=== PATIENT | male | born 1975 | race Caucasian/White ===

== ENCOUNTER 2017-04-01 14:17 | Inpatient (IN) | payer MEDICAID, OTHER ==
[~2017-04-01] VITALS: Ht 175.3 cm; Wt 79.5 kg
[~2017-04-01 14:17] MED LIST: CLIN-73 PO; GLIP-95 PO; LANT3I SC; SITA50TA2 PO
[2017-04-01] MEDS ORDERED: SODIUM CHLORIDE 0.9% 1L BAG IV* STA (16:26)
[2017-04-01] MEDS ORDERED: PIPER-TAZO 3.375 GM IV (PMX) 100 ML IVPB ONE (16:30)
[2017-04-01] MEDS ORDERED: VANCOMYCIN 1 GM (PMX) 250 ML IVPB ONE (16:30)
[2017-04-01] MEDS ORDERED: IBUPROFEN 600 MG TAB PO ONE (16:30)
--- NOTE | 2017-04-01 16:56 | RADRPT ---
PROCEDURE: XR Chest. CLINICAL INDICATION: Sepsis . TECHNIQUE: Single frontal chest x-ray. COMPARISON: By FINDINGS: The lungs are clear of acute infiltrates, edema, effusions, or masses.. The cardiomediastinal silho uette is unremarkable. The osseous structures are intact. IMPRESSION: No acute cardiopulmonary disease. RPTAT: GG .Héctor Carrasco MD, MD Date Time Electronically viewed and signed by .Héctor Carrasco MD, on 04/01/2017 16:56 .L/
[2017-04-01 16:57] LABS: BASOPHILS % 0.3 % (0.0-2.0); EOSINOPHILS # 0.1 10^3/ul (0.0-0.5); EOSINOPHILS % 0.8 % (0.0-7.0); HEMATOCRIT 38.1 % (42.0-52.0); HEMOGLOBIN 13.5 g/dl (14.0-18.0); LYMPHOCYTES % 7.5 % (15.0-51.0); MEAN CORPUSCULAR HEMOGLOBIN 32.4 pg (29.0-33.0); MEAN CORPUSCULAR HGB CONC 35.4 g/dl (32.0-37.0); MEAN CORPUSCULAR VOLUME 91.4 fl (82.0-101.0); MONOCYTE # 1.4 10^3/ul (0.3-0.9); MONOCYTES % 10.2 % (0.0-11.0); NEUTROPHIL # 11.2 10^3/ul (1.6-7.5); NEUTROPHILS % 80.6 % (39.0-77.0); PLATELET COUNT 163 10^3/UL (140-415); RED BLOOD COUNT 4.17 10^6/ul (4.70-6.10); RED CELL DISTRIBUTION WIDTH 11.2 % (11.5-14.5); WHITE BLOOD COUNT 13.9 10^3/ul (4.8-10.8)
[2017-04-01 17:19] LABS: ALANINE AMINOTRANSFERASE 26 IU/L (13-69); ALBUMIN 3.8 g/dl (3.3-4.9); ALBUMIN/GLOBULIN RATIO 1.15; ALKALINE PHOSPHATASE 149 IU/L (42-121); ANION GAP 19 (8-16); ASPARTATE AMINO TRANSFERASE 10 IU/L (15-46); BILIRUBIN,INDIRECT 0.5 mg/dl (0-1.1); BILIRUBIN,TOTAL 0.5 mg/dl (0.2-1.3); BLOOD UREA NITROGEN 14 mg/dl (7-20); CALCIUM 9.2 mg/dl (8.4-10.2); CARBON DIOXIDE 26 mmol/L (21-31); CHLORIDE 96 mmol/L (97-110); CREATININE 1.29 mg/dl (0.61-1.24); POTASSIUM 4.7 mmol/L (3.5-5.1); SODIUM 136 mmol/L (135-144); TOTAL PROTEIN 7.1 g/dl (6.1-8.1)
[2017-04-01 17:24] LABS: GLUCOSE 509 mg/dl (70-220)
[2017-04-01 17:26] LABS: INR 0.96; PROTIME 12.8 Sec (12.2-14.2)
[2017-04-01 17:27] LABS: PARTIAL THROMBOPLASTIN TIME 29.1 Sec (25.0-35.0)
[2017-04-01 17:34] LABS: TROPONIN-I < 0.012 ng/ml (0.00-0.12)
--- NOTE | 2017-04-01 18:26 | RADRPT ---
PROCEDURE: XR Foot. CLINICAL INDICATION: Clinical concern is for a foreign body. TECHNIQUE: Three views of the right foot are available for review. COMPARISON: CR FOOT 10/29/2015 FINDINGS: There is no acute osseous or articular abnormality. No evidence for fracture. Bone mineral density is preserved. The articular surfaces are smooth without evidence of marginal erosions. Enthesopathi c changes seen at the plantar calcaneal margin. The soft tissues are intact without evidence of calc ifications. IMPRESSION: 1. No acute osseous abnormality or radiographic evidence for osteomyelitis. Please note that MRI is more sensitive in evaluating for early changes of osteomyelitis. 2. No radiopaque foreign body. RPTAT: [facility]U .Daniel Ribeiro MD, Date Time Electronically viewed and signed by .Daniel Ribeiro MD, MD on 04/01/2017 18:25 .d/
[2017-04-01] MEDS ORDERED: INSULIN LISPRO 100 UNIT/ML VIAL SC STA (18:39)
[2017-04-01] MEDS: SOD CHLORIDE 0.9% 1,000 ML IV SCH (18:59)
[2017-04-01] MEDS ORDERED: DOCUSATE SODIUM 100 MG CAP PO PRN (19:00)
[2017-04-01] MEDS ORDERED: VANCOMYCIN IV PER PHARMACY XX SCH (19:00)
[2017-04-01] MEDS ORDERED: NACL 0.9% 3 ML SYG IV SCH (19:00)
[2017-04-01] MEDS ORDERED: MAGNESIUM HYDROXIDE 30ML CUP PO PRN (19:00)
[2017-04-01] MEDS ORDERED: NA PHOSPHATE/BIPHOS 133 ML ENEMA PR PRN (19:00)
[2017-04-01] MEDS ORDERED: NITROGLYCERIN (SL) 0.4 MG TAB SL PRN (19:00)
[2017-04-01] MEDS ORDERED: ONDANSETRON 4 MG INJ IV PRN (19:00)
[2017-04-01] MEDS ORDERED: ALBUTEROL/IPRATROPIUM (NEB) 3 ML AMP HHN PRN (19:00)
[2017-04-01] MEDS ORDERED: LORAZEPAM 2 MG INJ IV PRN (19:00)
[2017-04-01] MEDS ORDERED: hydrALAzine 20 MG INJ IV PRN (19:00)
--- NOTE | 2017-04-01 19:01 | ERA ---
ER Documentation Chief Complaint Date/Time DATE: 04/01/17 TIME: 18:39 Chief Complaint diabetic foot HPI 42-year-old man complains of redness and pain to the dorsal aspect of the right foot creeping up the right leg 2 days. He states he had a similar episode just over a year ago. He is a diabetic and states his blood sugars have been running high. He has had tactile fevers, palpitations no chest pain or shortness of breath, no headache or blurry vision, no neck pain or stiffness, no recent antibiotic, no recent travel. 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 Medications Home Meds Reported Medications Sitagliptin* (Januvia*) 50 Mg Tablet, 50 MG PO BID, #30 TAB 10/29/15 Glipizide* (Glipizide*) 10 Mg Tablet, 10 MG PO BID, TAB 10/29/15 Discontinued Scripts Clindamycin Hcl* (Clindamycin Hcl*) 300 Mg Capsule, 300 MG PO Q6 for 10 Days, CAP Prov:LAURA NESBITT S. 10/31/15 Insulin Glargine* (Lantus*) 100 Unit/Ml Soln, 15 UNIT SC DAILY for 30 Days, 4 Refills Prov:LAURA NESBITT S. 10/31/15 Allergies Allergies: Coded Allergies: No Known Allergy (Verified , 04/01/17) PMhx/Soc Diabetes mellitus History of Surgery: No Anesthesia Reaction: No Hx Neurological Disorder: No Hx Respiratory Disorders: No Hx Cardiac Disorders: Yes (HTN) Hx Psychiatric Problems: No Hx Miscellaneous Medical Probl: Yes (DM, pancreatitis, hypercholesterolemia) Hx Alcohol Use: No Hx Substance Use: No Hx Tobacco Use: No (5-6 sticks a day) Smoking Status: Never smoker FmHx Family History: No diabetes Physical Exam Vitals Vital Signs Date Time Temp Pulse Resp B/P Pulse Ox O2 Delivery O2 Flow Rate FiO2 04/01/17 14:26 99.8 124 24 135/88 98 Physical Exam GENERAL: Well-developed, well-nourished, febrile HEENT: Moist mucous membranes, pink conjunctiva, no cervical spine tenderness or step-off deformities, no goiter, no jaundice or icterus, extraocular movements intact without pain. No submandibular induration, and no pharyngeal erythema NEURO: Alert and oriented 3, cranial nerves II through XII intact bilaterally, pupils equal round reactive to light, no focal deficits or facial asymmetry, sensation intact distally Strength 5/5 in upper and lower extremities bilaterally CARDIAC: Tachycardic and regular, no murmurs rubs or gallops LUNGS: Clear bilaterally no wheezing crackles or stridor ABDOMEN: Soft nontender, no guarding, no rigidity, no rebound, no psoas sign no obturator sign. Normoactive bowel sounds SKIN: Warm and dry to touch, positive skin erythema and induration to the dorsal aspect of the right foot creeping up the right leg consistent with cellulitis and lymphangitis., No ulcers or pustules noted. EXTREMITIES: No clubbing cyanosis or edema, calves are bilaterally symmetrical, no Homans sign, no popliteal cord sign. Distal pulses equal and bilateral PSYCH: Normal affect without agitation or irritability Result Diagram: 04/01/17 1640 04/01/17 1640 Results 24 hrs Laboratory Tests Test 04/01/17 16:40 White Blood Count 13.910^3/ul Red Blood Count 4.1710^6/ul Hemoglobin 13.5g/dl Hematocrit 38.1% Mean Corpuscular Volume 91.4fl Mean Corpuscular Hemoglobin 32.4pg Mean Corpuscular Hemoglobin Concent 35.4g/dl Red Cell Distribution Width 11.2% Platelet Count 40202^3/UL Mean Platelet Volume 11.0fl Neutrophils % 80.6% Lymphocytes % 7.5% Monocytes % 10.2% Eosinophils % 0.8% Basophils % 0.3% Nucleated Red Blood Cells % 0.0/100WBC Neutrophils # 11.210^3/ul Lymphocytes # 1.010^3/ul Monocytes # 1.410^3/ul Eosinophils # 0.110^3/ul Basophils # 0.010^3/ul Nucleated Red Blood Cells # 0.010^3/ul Prothrombin Time 12.8Sec Prothrombin Time Ratio 1.0 INR International Normalized Ratio 0.96 Activated Partial Thromboplast Time 29.1Sec Sodium Level 136mmol/L Potassium Level 4.7mmol/L Chloride Level 96mmol/L Carbon Dioxide Level 26mmol/L Anion Gap 19 Blood Urea Nitrogen 14mg/dl Creatinine 1.29mg/dl Glucose Level 509mg/dl Lactic Acid Level 2.5mmol/L Calcium Level 9.2mg/dl Total Bilirubin 0.5mg/dl Direct Bilirubin 0.00mg/dl Indirect Bilirubin 0.5mg/dl Aspartate Amino Transf (AST/SGOT) 10IU/L Alanine Aminotransferase (ALT/SGPT) 26IU/L Alkaline Phosphatase 149IU/L Troponin I < 0.012ng/ml Total Protein 7.1g/dl Albumin 3.8g/dl Globulin 3.30g/dl Albumin/Globulin Ratio 1.15 Lipase 79U/L Current Medications Medications (Trade) Dose Ordered Sig/Antoni Route PRN Reason Start Time Stop Time Status Last Admin Dose Admin Sodium Chloride 3000 ml 3,000 ml BOLUS OVER 2 HOURS STAT IV* 04/01/17 16:26 04/01/17 16:28 DC 04/01/17 16:43 Vancomycin HCl 250 ml @ 125 mls/hr ONCE ONCE IVPB 04/01/17 16:30 04/01/17 18:29 DC 04/01/17 16:30 Piperacillin Sod/ Tazobactam Sod (Zosyn 3.375gm/ 100 ml (Pmx)) 100 ml @ 200 mls/hr ONCE ONCE IVPB 04/01/17 16:30 04/01/17 16:59 DC 04/01/17 16:43 Ibuprofen (Motrin) 600 mg ONCE ONCE PO 04/01/17 16:30 04/01/17 16:31 DC 04/01/17 16:43 Procedures/MDM IV line was established patient was placed on court monitor rhythm strip revealed a sinus tachycardia at 120 bpm. Patient was febrile. Blood and urine cultures have been ordered results are pending I will follow-up. EKG performed, read by me revealed a sinus tachycardia 113 bpm, normal axis, right ventricular conduction delay with incarceration of 100 ms, no concerning ST elevations or depressions noted. LVH lead I. Chest X-ray 1V Interpreted by me: Soft Tissue: No acute abnormalities Bones: No acute abnormalities Mediastinum/Cardiac Silhouette/Lungs: No acute abnormalities X-ray right foot 3V Interpreted by me: Bones: No fracture Joints: No dislocation Foreign body: None I administered ibuprofen 600 mg p.o., 3 L normal saline intravenously, vancomycin 1 g IV and Zosyn 3.375 g IV. CBC reveals mild leukocytosis, electrolytes reveal a creatinine of 1.3, liver function tests normal, hyperglycemia 509, troponin negative, lactic acid elevated at 2.5. For acute hyperglycemia I administered lispro insulin 12 units subcutaneous injection 1. Patient's infectious symptoms have not stabilized and the patient is at risk of rapid decompensation. The patient will be admitted for careful hydration, antibiotic therapy, and infectious source control. Severe Sepsis Assessment: Infectious Source: Foot cellulitis End organ damage indicated by: No criteria for endorgan damage. Severe Sepsis Managment: Blood Cultures X 2 before broad spectrum antibiotics initiated within 3 hours of recognition. 30 ml/kg NS bolus Completed Initial Lactate: Elevated at 2.5. Repeat Lactate pending Critical Care: Time: 50 minutes, this was time separate from other billable procedures. Treatments/Evaluations: Emergent fluid management, while maintaining close respiratory support. Immediate broad spectrum antibiotic therapy. Simultaneous assessment for possible sources in order to direct therapy. Consideration for invasive and chemical support to prevent respiratory or cardiac collapse. Septic Shock Assessment (1 hour post 30 ml/kg fluid bolus): Hypotension (SBP < 90 or 40 mmHg drop, MAP < 65): No Lactic acid > 4.0 No Perfusion Reassessment for Septic Shock: Temp 99.9, pulse 100 bpm, respiratory rate 18 breaths per minute, blood pressure 120/80 Heart Exam: Regular rate rhythm Lung Exam: No crackles wheezing or stridor Capillary Refill: Less than 2 seconds Peripheral Pulses: Radially present Skin: [place] and dry Hypotensive Treatment (not required for isolated lactic acid elevation): Comfort Care: No Central LIne: Not indicated Vasopressor started: Not indicated I considered further perfusion assessment with CVP measurement, SCVO2, bedside ultrasound volume assessment, passive leg raise, trial of further fluid bolus. And preceded with IV antibiotics and IV fluids. Accepting Care Team: Current data and ongoing care discussed. Time: Time of admission Primary Provider: Hospitalist Consulting: Infectious disease Outstanding Data: none Departure Diagnosis: Primary Impression: Cellulitis Qualified Code: L03.115 - Cellulitis of right lower extremity Additional Impressions: Sepsis Qualified Code: A41.9 - Sepsis, due to unspecified organism Lymphangitis Diabetes mellitus Qualified Code: E11.65 - Type 2 diabetes mellitus with hyperglycemia, unspecified half-way insulin use status Acute hyperglycemia Condition: ANDREI Reyes MD Apr 01, 2017 18:53
[2017-04-01] MEDS: HYDROCODONE/APAP (5/325) TAB PO PRN (19:29)
[2017-04-01] MEDS: morphine 2 MG INJ IV PRN (19:29)
[2017-04-01] MEDS ORDERED: GLUCOSE GEL 15 GRAM TUBE PO PRN ×2 (19:30)
[2017-04-01] MEDS ORDERED: GLUCOSE GEL 15 GRAM TUBE BUCCAL PRN (19:30)
[2017-04-01] MEDS ORDERED: GLUCAGON 1 MG INJ IM PRN (19:30)
[2017-04-01] MEDS: NICOTINE (14 MG/24 HR) PATCH TRANSDERM SCH (19:30)
[2017-04-01] MEDS ORDERED: DEXTROSE 50% 50 ML SYRINGE IV PRN ×2 (19:30)
--- NOTE | 2017-04-01 20:27 | HP ---
DATE OF ADMISSION: 04/01/2017 CHIEF COMPLAINT: Right foot pain and redness. HISTORY OF PRESENT ILLNESS: A 42-year-old male with past medical history of prior right big toe cellulitis and ulcer, type 2 diabetes, high cholesterol, and smoking history, who presents with right foot redness and pain. He says he has been treating an ulcer on the sole of his right foot near his 5th digit for the last 2 days with hydrogen peroxide and it has been having some mild drainage, but he also noticed redness occurring in his right foot for the last 24 hours. Denies any trauma to the area. No chest pain or shortness of breath, fevers or chills, nausea, vomiting, upper lower GI bleeding, diarrhea or constipation, headaches, dizziness, or loss of consciousness. When he came into the ER today, he had an elevated white blood cell count of almost 14,000 and his lactic acid was elevated as well at 2.5 and he was given antibiotics in the emergency room. He also had signs of elevated blood sugar of 509. Patient was last here at our hospital in Oct, 2015. At that time, he was treated for right big toe 1st digit cellulitis and ulcer, and had uncontrolled diabetes at that time. PAST MEDICAL HISTORY: As stated above. ALLERGIES: NO KNOWN DRUG ALLERGIES. HOME MEDICATIONS: Presently include glipizide 10 mg b.i.d. and Januvia 50 mg b.i.d. PAST SURGICAL HISTORY: None. SOCIAL HISTORY: He smokes half a pack of cigarettes a day for the last 10 years. FAMILY HISTORY: His mother and father both had diabetes. PHYSICAL EXAMINATION: VITAL SIGNS: Today vital signs, T-max 99, 99.8, pulse is 124, respirations 24, blood pressure 135/88, sating at 98 percent room air. GENERAL: Patient is lying in bed, answers appropriately, no acute distress. HEENT: Pupils equal, round, react to light. Extraocular muscles intact. NECK: Supple. No thyromegaly. LUNGS: Clear to auscultation bilaterally. CARDIOVASCULAR: S1, S2 heard. No rubs or gallops. ABDOMEN: Soft, nontender, nondistended. Normal bowel sounds. No rebound or guarding. MUSCULOSKELETAL: His right foot, both the dorsal and plantar aspects, show warmth and redness and slight swelling on the plantar aspect of his right foot around the 5th digit. There is an ulcer noted with minimal drainage coming out. No blood. Otherwise, no lower extremity edema bilaterally. NEUROLOGIC: No focal deficits. LABORATORY: Again, WBC 13.9, hemoglobin 13.5, hematocrit 38.1, platelets 163. Sodium 136, potassium 4.7, chloride 96, CO2 26, BUN 14, creatinine 1.29, glucose 509, lactic acid 2.5. LFTs are essentially normal, although, alk phos is 149, lipase is normal. He had a foot x-ray that shows no acute osseous abnormalities or radiographic evidence for osteomyelitis. No signs of any fractures. He had a chest x-ray today that shows no acute cardiopulmonary disease. ASSESSMENT AND PLAN: A 42-year-old male coming in with right foot redness and swelling with signs of osteomyelitis and diabetic foot ulcer likely. 1. Right foot cellulitis. Admit patient to medical/surgical floor. Will get podiatry and infectious disease consult, put him on broad-spectrum antibiotics, IV fluids as well. Check TSH, A1c, and lipid panel. Will get an MRI of the right foot to rule out osteomyelitis as well given that there is an ulcer there. 2. Right foot diabetic ulcer. Again, see number 1. Again, will continue broad-spectrum antibiotics as in number 1 and get podiatry consult and infectious disease consult. Patient may benefit from incision and drainage. Will get MRI of the right foot. 3. Lactic acidosis. Again, likely secondary to number 1. Again, continue broad-spectrum antibiotics, IV fluids, trend lactic acid, Tylenol p.r.n. pain and fevers. 4. History of type 2 diabetes. Appears to be under control. His last A1c back in Oct, 2015 was 10.0. Sugar today is 509. Will check A1c, put him on sliding scale insulin, and also Lantus. 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 5. Smoking history. Counseled on cessation. Will order nicotine patch as well. 6. High cholesterol. Again, check lipid panel and consider starting statin. Consider PT consult as well. Dictated By: Senthil Pa MD /gomez/nga /Document#: [id number]
[2017-04-01] MEDS ORDERED: VANCOMYCIN 1.25 GM in SOD CHLORIDE 0.9% 250 ML IVPB SCH (21:00)
[2017-04-01 21:51] LABS: INR 0.92; PROTIME 12.4 Sec (12.2-14.2)
[2017-04-01 21:52] LABS: PARTIAL THROMBOPLASTIN TIME 27.1 Sec (25.0-35.0)
[2017-04-01 22:05] VITALS: TEMP 97.9
--- NOTE | 2017-04-01 23:57 | RADRPT ---
PROCEDURE: MR Foot. CLINICAL INDICATION: Open wound with infection in the right forefoot, with concern for osteomyeliti s. TECHNIQUE: Noncontrast MRI examination was obtained over the forefoot from the tarsal metatarsal marilee ints to the toes, with axial, sagittal and coronal images. T1-weighted and STIR images were obtained . COMPARISON: Right foot plain film series dated 04/01/2017. FINDINGS: There is a soft tissue defect at the plantar aspect of the lateral right forefoot. There is no evide nt abnormal T1-weighted or fluid-sensitive STIR sequence signal within the osseous structures of the right forefoot to suggest osteomyelitis. The soft tissues otherwise unremarkable. There may be a remote surgical changes of a chevron osteotomy in the mid diaphysis of the first prox imal phalanx. This is not clear. There is no evident acute fracture, dislocation or marrow replacement process. IMPRESSION: No MRI evidence of osteomyelitis. RPTAT: [facility] Physician Beka Date Time Electronically viewed and signed by Physician Beka on 04/01/2017 23:57 RS/
[2017-04-02 00:30] VITALS: Ht 175.3 cm; Wt 79.5 kg
[2017-04-02] MEDS: INSULIN ASPART [NOVOLOG] 3 ML PEN SC SCH ×8 (01:00→20:55)
[2017-04-02] MEDS: HEPARIN 5,000 UNIT/0.5 ML VIAL SC SCH ×3 (01:21→20:56)
[2017-04-02] MEDS: ACCU-CHEK XX SCH (02:00)
[2017-04-02] MEDS: PIPER-TAZO 3.375 GM IV (PMX) 100 ML IVPB SCH ×5 (03:51→23:41)
[2017-04-02] MEDS: SOD CHLORIDE 0.9% 1,000 ML IV SCH ×2 (03:52→18:04)
[2017-04-02] MEDS: INSULIN GLARGINE [LANtus] 3 ML PEN SC SCH (07:31)
[2017-04-02 07:40] LABS: CHOL/HDL RATIO 3.2 RATIO
[2017-04-02 07:44] VITALS: BP 138/85; PULSE 101; RESP 17
[2017-04-02 08:12] LABS: THYROID STIMULATING HORMONE 0.82 MIU/L (0.465-4.680)
[2017-04-02] MEDS: morphine 2 MG INJ IV PRN ×2 (08:40→14:54)
[2017-04-02] MEDS: NICOTINE (14 MG/24 HR) PATCH TRANSDERM SCH (09:00)
[2017-04-02 09:46] LABS: BASOPHILS % 0.3 % (0.0-2.0); EOSINOPHILS # 0.2 10^3/ul (0.0-0.5); EOSINOPHILS % 1.6 % (0.0-7.0); HEMATOCRIT 33.2 % (42.0-52.0); HEMOGLOBIN 11.2 g/dl (14.0-18.0); LYMPHOCYTES # 1.2 10^3/ul (0.8-2.9); LYMPHOCYTES % 9.8 % (15.0-51.0); MEAN CORPUSCULAR HEMOGLOBIN 30.9 pg (29.0-33.0); MEAN CORPUSCULAR HGB CONC 33.7 g/dl (32.0-37.0); MEAN CORPUSCULAR VOLUME 91.7 fl (82.0-101.0); MEAN PLATELET VOLUME 10.9 fl (7.4-10.4); MONOCYTE # 1.1 10^3/ul (0.3-0.9); MONOCYTES % 9.2 % (0.0-11.0); NEUTROPHIL # 9.2 10^3/ul (1.6-7.5); NEUTROPHILS % 78.3 % (39.0-77.0); PLATELET COUNT 134 10^3/UL (140-415); RED BLOOD COUNT 3.62 10^6/ul (4.70-6.10); RED CELL DISTRIBUTION WIDTH 11.3 % (11.5-14.5); WHITE BLOOD COUNT 11.7 10^3/ul (4.8-10.8)
[2017-04-02 10:14] LABS: CALCIUM 8.2 mg/dl (8.4-10.2); CREATININE 0.6 mg/dl (0.61-1.24); MAGNESIUM 1.3 mg/dl (1.7-2.5); PHOSPHORUS 3.7 mg/dl (2.5-4.9); POTASSIUM 4.6 mmol/L (3.5-5.1)
--- NOTE | 2017-04-02 11:35 | CONS ---
DATE OF ADMISSION: 04/01/2017 DATE OF CONSULTATION: 04/02/2017 INFECTIOUS DISEASE CONSULTATION REASON FOR CONSULTATION: Antibiotic management. HISTORY OF PRESENT ILLNESS: Rey Mitchell is a 42-year-old male with numerous problems who comes in with right foot pain and redness. His past problems include: 1. Adult-onset diabetes mellitus. 2. Hypercholesterolemia. 3. History of smoking. 4. Cellulitis of the right big toe. Acutely, the patient comes in with right foot redness and pain. He has an ulcer on his sole of the right foot near his 5th digit for the last 2 days with mild drainage despite use of hydrogen peroxid e. There is redness that is occurring in his right foot for the last 24 hours. He denies trauma to the area. No chest pain or shortness of breath. No fever or chills. He had an elevated white cou nt of 13.9, H and H of 13.5 and 38.1, platelet count 163,000. BUN and creatinine 14/1.29. LFTs are normal. Alkaline phosphatase is 149. X-ray shows no acute osseous abnormalities or evidence of os teomyelitis. Chest x-ray showed no acute cardiopulmonary disease. The patient was hospitalized las t 10/2015, was treated for right big toe 1st digit cellulitis and ulcer and has had uncontrolled karen betes. He had it at that time and probably currently. PAST MEDICAL HISTORY: Operations as outlined. FAMILY HISTORY: Noncontributory. His parents both had diabetes. SOCIAL HISTORY: He smokes half pack of cigarettes a day for the last 10 years. ALLERGIES: NONE TO PENICILLIN, SULFA OR FOODS. MEDICATIONS: Per chart. REVIEW OF SYSTEMS: Noncontributory. PHYSICAL EXAMINATION: GENERAL: The patient is a well-developed, well-nourished male, alert, responsive, in no acute distr ess. VITAL SIGNS: Stable. He is afebrile. SKIN: Without generalized rash. HEENT: Within normal limits. NECK: Supple. LYMPH NODES: None palpable. CHEST: Decreased breath sounds at the bases. HEART: Without murmur or gallop. ABDOMEN: Soft, nontender, without organosplenomegaly or masses. EXTREMITIES: Right foot both dorsal and plantar aspects are warm and red, slight swelling on the pl ida aspect of his right foot around the 5th digit. There is an ulcer noted with minimal drainage coming out, no blood, otherwise no lower extremity edema bilaterally. IMPRESSION AND PLAN: The patient was started on vancomycin and Zosyn. Podiatry was called and an M RI scan was ordered of the right foot. I concur with current therapy. I will dictate my findings t o the hospitalist and to thank Dr. Martinez. Dictated By: DC DUONG MD, JD/CRUZ Conf#: [id number] DID#: [id number]
--- NOTE | 2017-04-02 12:36 | PN ---
Date/Time of Note Date/Time of Note DATE: 04/02/17 TIME: 12:35 Assessment/Plan VTE Prophylaxis VTE Prophylaxis Intervention: heparin Lines/Catheters IV [facility] Type (from [facility] Peripheral IV Urinary Cath still in place: No Assessment/Plan Chief Complaint/Hosp Course ASSESSMENT AND PLAN: A 42-year-old male coming in with right foot redness and swelling with signs of osteomyelitis and diabetic foot ulcer likely. 1. Right foot cellulitis -still prominent, slowly improving. f/u podiatry and infectious disease consult rec's, - continue broad-spectrum antibiotics, IV fluids as well. - f/uTSH, A1c, and lipid panel. - f wound culture results 2. Right foot diabetic ulcer. Again, see number 1. Again, will continue broad-spectrum antibiotics as in number 1 and get podiatry consult and infectious disease consult. Patient may benefit from incision and drainage 3. Lactic acidosis - resolved now. again, likely secondary to number 1. Again, continue broad-spectrum antibiotics, IV fluids, trend lactic acid, Tylenol p.r.n. pain and fevers. 4. History of type 2 diabetes.A1c = 10.6 - continue sliding scale insulin, and also Lantus. Consider nurse educator consult. 5. Smoking history. Counseled on cessation, nicotine patch as well. 6. High cholesterol - f/u check lipid panel and consider starting statin. Consider PT consult as well. Problems: Subjective 24 Hr Interval Summary Free Text/Dictation Patient had no acute events overnight. MRI of the foot was performed. Seen by infectious disease team yesterday. Exam/Review of Systems Vital Signs Vitals Vital Signs Date Time Temp Pulse Resp B/P Pulse Ox O2 Delivery O2 Flow Rate FiO2 04/02/17 07:44 99.4 101 17 138/85 97 Room Air Intake and Output 04/01/17 04/01/17 04/02/17 14:59 22:59 06:59 Intake Total 350 ml Balance 350 ml Exam GENERAL: Patient is lying in bed, answers appropriately, no acute distress. HEENT: Pupils equal, round, react to light. Extraocular muscles intact. NECK: Supple. No thyromegaly. LUNGS: Clear to auscultation bilaterally. CARDIOVASCULAR: S1, S2 heard. No rubs or gallops. ABDOMEN: Soft, nontender, nondistended. Normal bowel sounds. No rebound or guarding. MUSCULOSKELETAL: His right foot, both the dorsal and plantar aspects, show warmth and redness and slight swelling on the plantar aspect of his right foot around the 5th digit. There is an ulcer noted with minimal drainage coming out. No blood. Otherwise, no lower extremity edema bilaterally. NEUROLOGIC: No focal deficits. Results Result Diagram: 04/02/17 0815 04/02/17 0814 Results 24 hrs Laboratory Tests Test 04/01/17 16:40 04/01/17 20:25 04/01/17 21:12 04/01/17 23:49 White Blood Count 13.9 #H Red Blood Count 4.17 L Hemoglobin 13.5 L Hematocrit 38.1 L Mean Corpuscular Volume 91.4 Mean Corpuscular Hemoglobin 32.4 Mean Corpuscular Hemoglobin Concent 35.4 Red Cell Distribution Width 11.2 L Platelet Count 163 Mean Platelet Volume 11.0 H Neutrophils % 80.6 H Lymphocytes % 7.5 L Monocytes % 10.2 Eosinophils % 0.8 Basophils % 0.3 Nucleated Red Blood Cells % 0.0 Neutrophils # 11.2 H Lymphocytes # 1.0 Monocytes # 1.4 H Eosinophils # 0.1 Basophils # 0.0 Nucleated Red Blood Cells # 0.0 Prothrombin Time 12.8 12.4 Prothrombin Time Ratio 1.0 1.0 INR International Normalized Ratio 0.96 0.92 Activated Partial Thromboplast Time 29.1 27.1 Sodium Level 136 Potassium Level 4.7 Chloride Level 96 L Carbon Dioxide Level 26 Anion Gap 19 H Blood Urea Nitrogen 14 Creatinine 1.29 H Glucose Level 509 *H Lactic Acid Level 2.5 *H 2.4 *H Calcium Level 9.2 Total Bilirubin 0.5 Direct Bilirubin 0.00 Indirect Bilirubin 0.5 Aspartate Amino Transf (AST/SGOT) 10 L Alanine Aminotransferase (ALT/SGPT) 26 Alkaline Phosphatase 149 H Troponin I < 0.012 Total Protein 7.1 Albumin 3.8 Globulin 3.30 H Albumin/Globulin Ratio 1.15 Lipase 79 Bedside Glucose 308 H 267 H Erythrocyte Sedimentation Rate 105 H C-Reactive Protein 24.2 H Free Thyroxine 1.49 Test 04/01/17 23:56 04/02/17 01:14 04/02/17 01:15 04/02/17 05:19 Lactic Acid Level 1.4 Bedside Glucose 340 H 331 H 256 H Test 04/02/17 06:10 04/02/17 07:24 04/02/17 08:14 04/02/17 08:15 Hemoglobin A1c 10.6 H Triglycerides Level 125 Cholesterol Level 72 L LDL Cholesterol, Calculated 25 HDL Cholesterol 22 L Cholesterol/HDL Ratio 3.2 Thyroid Stimulating Hormone (TSH) 0.820 Bedside Glucose 219 Sodium Level 136 Potassium Level 4.6 Chloride Level 102 Carbon Dioxide Level 25 Anion Gap 14 Blood Urea Nitrogen 14 Creatinine 0.60 L Glucose Level 208 # Calcium Level 8.2 L Phosphorus Level 3.7 Magnesium Level 1.3 L White Blood Count 11.7 H Red Blood Count 3.62 L Hemoglobin 11.2 L Hematocrit 33.2 L Mean Corpuscular Volume 91.7 Mean Corpuscular Hemoglobin 30.9 Mean Corpuscular Hemoglobin Concent 33.7 Red Cell Distribution Width 11.3 L Platelet Count 134 L Mean Platelet Volume 10.9 H Neutrophils % 78.3 H Lymphocytes % 9.8 L Monocytes % 9.2 Eosinophils % 1.6 Basophils % 0.3 Nucleated Red Blood Cells % 0.0 Neutrophils # 9.2 H Lymphocytes # 1.2 Monocytes # 1.1 H Eosinophils # 0.2 Basophils # 0.0 Nucleated Red Blood Cells # 0.0 Lactic Acid Level 1.1 Test 04/02/17 11:53 Bedside Glucose 238 H Medications Medications Current Medications Ondansetron HCl (Zofran Inj) 4 mg Q6H PRN IV NAUSEA AND/OR VOMITING; Start 06/06 at 19:00 Acetaminophen (Tylenol Tab) 650 mg Q6H PRN PO PAIN LEVEL 1-3 OR FEVER; Start 04/01/17 at 19:00 Acetaminophen/ Hydrocodone Bitart ([place] (5/325)) 1 tab Q6H PRN PO MODERATE PAIN LEVEL 4-6 Last administered on 04/01/17 19:29; Admin Dose 1 TAB; Start 04/01/17 at 19:00 Morphine Sulfate (morphine) 2 mg Q4H PRN IV SEVERE PAIN LEVEL 7-10 Last administered on 04/02/17 08:40; Admin Dose 2 MG; Start 04/01/17 at 19:00 Docusate Sodium (Colace) 100 mg Q12H PRN PO CONSTIPATION; Start 04/01/17 at 19 :00 Magnesium Hydroxide (Milk Of Mag) 30 ml DAILY PRN PO CONSTIPATION; Start 04/01 at 19:00 Sodium Biphosphate/ Sodium Phosphate (Fleet Enema) 133 ml DAILY PRN IN CONSTIPATION; Start 04/01/17 at 19:00 Heparin Sodium (Porcine) (Heparin (5000 Units/0.5 ml)) 5,000 unit Q12 SC Last administered on 04/02/17 08:44; Admin Dose 5,000 UNIT; Start 04/01/17 at 21: 00 Lorazepam 0.5 mg 0.5 mg Q6H PRN IV ANXIETY; Start 04/01/17 at 19:00 Sodium Chloride 1,000 ml @ 100 mls/hr Q10H IV Last administered on 04/02/17 03:52; Admin Dose 100 MLS/HR; Start 04/01/17 at 18:59 Piperacillin Sod/ Tazobactam Sod (Zosyn 3.375gm/ 100 ml (Pmx)) 100 ml @ 200 mls /hr Q6 IVPB Last administered on 04/02/17 11:48; Admin Dose 200 MLS/HR; Start 04/02/17 at 00:00 Vancomycin HCl (Vanco Iv Per Pharmacy) VANCOMYCIN PER PHARMACY NOTE XX ; Start 04/01/17 at 19:00 Hydralazine HCl (Apresoline) 10 mg Q6H PRN IV ELEVATED BLOOD PRESSURE; Start 04/01/17 at 19:00 Clonidine (Catapres) 0.1 mg Q6H PRN PO ELEVATED BLOOD PRESSURE; Start at 19:00 Nitroglycerin (Nitroglycerin (Sl Tab) 0.4 Mg) 1 tab Q5M PRN SL ANGINA; Start 04/01/17 at 19:00 Diagnostic Test (Pha) (Accu-Chek) 1 ea 02 XX ; Start 04/02/17 at 02:00 Insulin Glargine (Lantus) 20 unit DAILY@08 SC Last administered on 04/02/17 07:31; Admin Dose 20 UNIT; Start 04/02/17 at 08:00 Miscellaneous Information 1 ea NOTE XX ; Start 04/01/17 at 19:30 Glucose (Glutose) 15 gm Q15M PRN PO DECREASED GLUCOSE; Start 04/01/17 at 19:30 Glucose (Glutose) 22.5 gm Q15M PRN PO DECREASED GLUCOSE; Start 04/01/17 at 19: 30 Dextrose (D50w Syringe) 25 ml Q15M PRN IV DECREASED GLUCOSE; Start 04/01/17 at 19:30 Dextrose (D50w Syringe) 50 ml Q15M PRN IV DECREASED GLUCOSE; Start 04/01/17 at 19:30 Glucagon (Glucagen) 1 mg Q15M PRN IM DECREASED GLUCOSE; Start 04/01/17 at 19: 30 Glucose (Glutose) 15 gm Q15M PRN BUCCAL DECREASED GLUCOSE; Start 04/01/17 at 19:30 Nicotine 1 patch 1 patch DAILY TRANSDERM ; Start 04/01/17 at 19:30 Vancomycin HCl/ Sodium Chloride (Vancocin/NS) 250 ml @ 83.333 mls/ hr Q12H IVPB ; Start 04/02/17 at 13:00 Miscellaneous Information VANCO TROUGH @ 1,200 ON ... ONCE ONCE XX ; Start at 12:00; Stop 04/03/17 at 12:01 Magnesium Sulfate/ Sodium Chloride (Magnesium Sulfate/NS) 106 ml @ 35.333 mls/ hr ONCE ONCE IVPB ; Start 04/02/17 at 13:00; Stop 04/02/17 at 15:59; Status UNV LAURA NESBITT Apr 02, 2017 12:36 LAURA NESBITT Apr 02, 2017 12:36
[2017-04-02] MEDS: VANCOMYCIN 1.25 GM in SOD CHLORIDE 0.9% 250 ML IVPB SCH (12:44)
[2017-04-02 14:00] VITALS: BP 128/83; PULSE 95; RESP 18
[2017-04-02] MEDS ORDERED: MAGNESIUM SULFATE 3 GM in SOD CHLORIDE 0.9% 100 ML IVPB ONE (14:00)
--- NOTE | 2017-04-02 19:03 | CONS ---
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 Continue IVAbx for now; non weight bearing and dry dressing with Betadine to plantar foot. Will follow. Consultation Date/Type/Reason Admit Date/Time Apr 01, 2017 at 17:32 Date of Consultation: Apr 02, 2017 Type of Consultation: Foot and ankle surgery Hx of Present Illness Thank you very much for involving me in the care of this patient. As you know this is a 42-year-old male with multiple medical problems including diabetes mellitus type 2, hypercholesterolemia, hypertension who presented to the emergency room with right foot redness swelling and pain. Patient reports that his been he has been treated for this had this problem in the past but mainly on the right big toe which cleared up. He says he has been taking care of his right foot using hydrogen peroxide but has noticed worsening of the condition. Patient denies any trauma to the right foot. He reports that the wound started as a blister on the ball of the right foot. Denies fever chills nausea and vomiting. Constitutional: improved, no complaints Eyes: no complaints ENT: no complaints Respiratory: no complaints Cardiovascular: no complaints Gastrointestinal: no complaints Past Medical History As per history of present illness. Past Surgical History As per history of present illness. Social History As per history of present illness. Smoking Status: Current every day smoker Exam/Review of Systems Vital Signs Vitals Vital Signs Date Time Temp Pulse Resp B/P Pulse Ox O2 Delivery O2 Flow Rate FiO2 04/02/17 14:00 98.7 95 18 128/83 94 Room Air Intake and Output 04/01/17 04/01/17 04/02/17 15:00 23:00 07:00 Intake Total 350 ml Balance 350 ml Exam GENERAL: Patient is in no acute distress; laying supine in bed; dressing removed from the right foot VASC: pedal pulses are palpable; capillary filling time is delayed bilateral feet; temperature gradient decreased right lower extremity and normal lower extremity; there is edema of the right foot NEURO: Protective sensation is decreased to sharp, dull, vibratory and temp stimuli; DTR normal bilateral lower extremity DERM: (+) erythema and open wound; maceration plantar sulcus of right foot; there is purulent drainage noted; erythema extends to the dorsal of the foot, anterior ankle and there is (+) streaking to the midleg ORTHO: tender to palpation right foot; contracted toes noted on both feet IMAGING: reviewed LABS: reviewed Results Result Diagram: 04/02/17 0815 04/02/1714 Results 24 hrs Laboratory Tests Test 04/01/17 20:25 04/01/17 21:12 04/01/17 23:49 04/01/17 23:56 Bedside Glucose 308 H 267 H Erythrocyte Sedimentation Rate 105 H Prothrombin Time 12.4 Prothrombin Time Ratio 1.0 INR International Normalized Ratio 0.92 Activated Partial Thromboplast Time 27.1 Lactic Acid Level 2.4 *H 1.4 C-Reactive Protein 24.2 H Free Thyroxine 1.49 Test 04/02/17 01:14 04/02/17 01:15 04/02/17 05:19 04/02/17 06:10 Bedside Glucose 340 H 331 H 256 H Hemoglobin A1c 10.6 H Triglycerides Level 125 Cholesterol Level 72 L LDL Cholesterol, Calculated 25 HDL Cholesterol 22 L Cholesterol/HDL Ratio 3.2 Thyroid Stimulating Hormone (TSH) 0.820 Test 04/02/17 07:24 04/02/17 08:14 04/02/17 08:15 04/02/17 11:53 Bedside Glucose 219 238 H Sodium Level 136 Potassium Level 4.6 Chloride Level 102 Carbon Dioxide Level 25 Anion Gap 14 Blood Urea Nitrogen 14 Creatinine 0.60 L Glucose Level 208 # Calcium Level 8.2 L Phosphorus Level 3.7 Magnesium Level 1.3 L White Blood Count 11.7 H Red Blood Count 3.62 L Hemoglobin 11.2 L Hematocrit 33.2 L Mean Corpuscular Volume 91.7 Mean Corpuscular Hemoglobin 30.9 Mean Corpuscular Hemoglobin Concent 33.7 Red Cell Distribution Width 11.3 L Platelet Count 134 L Mean Platelet Volume 10.9 H Neutrophils % 78.3 H Lymphocytes % 9.8 L Monocytes % 9.2 Eosinophils % 1.6 Basophils % 0.3 Nucleated Red Blood Cells % 0.0 Neutrophils # 9.2 H Lymphocytes # 1.2 Monocytes # 1.1 H Eosinophils # 0.2 Basophils # 0.0 Nucleated Red Blood Cells # 0.0 Lactic Acid Level 1.1 Test 04/02/17 15:50 04/02/17 17:10 Lactic Acid Level 0.9 Bedside Glucose 224 H Medications Medications Current Medications Ondansetron HCl (Zofran Inj) 4 mg Q6H PRN IV NAUSEA AND/OR VOMITING; Start 06/06 at 19:00 Acetaminophen (Tylenol Tab) 650 mg Q6H PRN PO PAIN LEVEL 1-3 OR FEVER; Start 04/01/17 at 19:00 Acetaminophen/ Hydrocodone Bitart ([place] (5/325)) 1 tab Q6H PRN PO MODERATE PAIN LEVEL 4-6 Last administered on 04/01/17 19:29; Admin Dose 1 TAB; Start 04/01/17 at 19:00 Morphine Sulfate (morphine) 2 mg Q4H PRN IV SEVERE PAIN LEVEL 7-10 Last administered on 04/02/17 14:54; Admin Dose 2 MG; Start 04/01/17 at 19:00 Docusate Sodium (Colace) 100 mg Q12H PRN PO CONSTIPATION; Start 04/01/17 at 19 :00 Magnesium Hydroxide (Milk Of Mag) 30 ml DAILY PRN PO CONSTIPATION; Start 04/01 at 19:00 Sodium Biphosphate/ Sodium Phosphate (Fleet Enema) 133 ml DAILY PRN [place] CONSTIPATION; Start 04/01/17 at 19:00 Heparin Sodium (Porcine) (Heparin (5000 Units/0.5 ml)) 5,000 unit Q12 SC Last administered on 04/02/17 08:44; Admin Dose 5,000 UNIT; Start 04/01/17 at 21: 00 Lorazepam 0.5 mg 0.5 mg Q6H PRN IV ANXIETY; Start 04/01/17 at 19:00 Sodium Chloride 1,000 ml @ 100 mls/hr Q10H IV Last administered on 04/02/17 18:04; Admin Dose 100 MLS/HR; Start 04/01/17 at 18:59 Piperacillin Sod/ Tazobactam Sod (Zosyn 3.375gm/ 100 ml (Pmx)) 100 ml @ 200 mls /hr Q6 IVPB Last administered on 04/02/17 17:14; Admin Dose 200 MLS/HR; Start 04/02/17 at 00:00 Vancomycin HCl (Vanco Iv Per Pharmacy) VANCOMYCIN PER PHARMACY NOTE XX ; Start 04/01/17 at 19:00 Hydralazine HCl (Apresoline) 10 mg Q6H PRN IV ELEVATED BLOOD PRESSURE; Start 04/01/17 at 19:00 Clonidine (Catapres) 0.1 mg Q6H PRN PO ELEVATED BLOOD PRESSURE; Start at 19:00 Nitroglycerin (Nitroglycerin (Sl Tab) 0.4 Mg) 1 tab Q5M PRN SL ANGINA; Start 04/01/17 at 19:00 Diagnostic Test (Pha) (Accu-Chek) 1 ea 02 XX ; Start 04/02/17 at 02:00 Insulin Glargine (Lantus) 20 unit DAILY@08 SC Last administered on 04/02/17 07:31; Admin Dose 20 UNIT; Start 04/02/17 at 08:00 Miscellaneous Information 1 ea NOTE XX ; Start 04/01/17 at 19:30 Glucose (Glutose) 15 gm Q15M PRN PO DECREASED GLUCOSE; Start 04/01/17 at 19:30 Glucose (Glutose) 22.5 gm Q15M PRN PO DECREASED GLUCOSE; Start 04/01/17 at 19: 30 Dextrose (D50w Syringe) 25 ml Q15M PRN IV DECREASED GLUCOSE; Start 04/01/17 at 19:30 Dextrose (D50w Syringe) 50 ml Q15M PRN IV DECREASED GLUCOSE; Start 04/01/17 at 19:30 Glucagon (Glucagen) 1 mg Q15M PRN IM DECREASED GLUCOSE; Start 04/01/17 at 19: 30 Glucose (Glutose) 15 gm Q15M PRN BUCCAL DECREASED GLUCOSE; Start 04/01/17 at 19:30 Nicotine 1 patch 1 patch DAILY TRANSDERM ; Start 04/01/17 at 19:30 Vancomycin HCl/ Sodium Chloride (Vancocin/NS) 250 ml @ 83.333 mls/ hr Q12H IVPB Last administered on 04/02/17 12:44; Admin Dose 83.333 MLS/HR; Start at 13:00 Miscellaneous Information (*Rx Drug Level Order Reminder*) VANCO TROUGH @ 1, 200 ON ... ONCE ONCE XX ; Start 04/03/17 at 12:00; Stop 04/03/17 at 12:01 ALEXANDRA VASQUEZ DPM Apr 02, 2017 19:03
[2017-04-02 23:26] VITALS: BP 144/83; RESP 20
[2017-04-02] MEDS: ACETAMINOPHEN 325 MG TAB PO PRN (23:41)
[2017-04-03] VITALS (17 sets, daily range): BP systolic 115–137; BP diastolic 68–87; PULSE 84–94; RESP 14–20
[2017-04-03] MEDS: SOD CHLORIDE 0.9% 1,000 ML IV SCH ×3 (00:59→21:12)
[2017-04-03] MEDS: VANCOMYCIN 1.25 GM in SOD CHLORIDE 0.9% 250 ML IVPB SCH ×3 (00:59→21:12)
[2017-04-03] MEDS: ACCU-CHEK XX SCH ×2 (01:40→01:41)
[2017-04-03] MEDS ORDERED: ACCU-CHEK XX SCH (02:00)
[2017-04-03] MEDS: PIPER-TAZO 3.375 GM IV (PMX) 100 ML IVPB SCH ×3 (05:21→17:50)
[2017-04-03 06:29] LABS: BASOPHIL # 0.1 10^3/ul (0.0-0.1); BASOPHILS % 0.5 % (0.0-2.0); EOSINOPHILS # 0.2 10^3/ul (0.0-0.5); EOSINOPHILS % 1.8 % (0.0-7.0); HEMATOCRIT 31.9 % (42.0-52.0); HEMOGLOBIN 11.2 g/dl (14.0-18.0); LYMPHOCYTES # 1.4 10^3/ul (0.8-2.9); LYMPHOCYTES % 14.2 % (15.0-51.0); MEAN CORPUSCULAR HEMOGLOBIN 32.1 pg (29.0-33.0); MEAN CORPUSCULAR HGB CONC 35.1 g/dl (32.0-37.0); MEAN CORPUSCULAR VOLUME 91.4 fl (82.0-101.0); MEAN PLATELET VOLUME 10.9 fl (7.4-10.4); MONOCYTE # 1.1 10^3/ul (0.3-0.9); NEUTROPHIL # 7.3 10^3/ul (1.6-7.5); NEUTROPHILS % 71.7 % (39.0-77.0); PLATELET COUNT 132 10^3/UL (140-415); RED BLOOD COUNT 3.49 10^6/ul (4.70-6.10); RED CELL DISTRIBUTION WIDTH 11.4 % (11.5-14.5); WHITE BLOOD COUNT 10.2 10^3/ul (4.8-10.8)
[2017-04-03] MEDS ORDERED: PROPOFOL 200 MG INJ ONE (07:00)
[2017-04-03 07:11] LABS: CALCIUM 8.1 mg/dl (8.4-10.2); CREATININE 0.62 mg/dl (0.61-1.24); POTASSIUM 3.9 mmol/L (3.5-5.1)
[2017-04-03] MEDS: morphine 2 MG INJ IV PRN ×2 (08:03→18:42)
[2017-04-03] MEDS: INSULIN GLARGINE [LANtus] 3 ML PEN SC SCH (08:14)
[2017-04-03] MEDS: INSULIN ASPART [NOVOLOG] 3 ML PEN SC SCH ×7 (08:15→21:00)
[2017-04-03] MEDS: NICOTINE (14 MG/24 HR) PATCH TRANSDERM SCH (09:00)
[2017-04-03] MEDS: HEPARIN 5,000 UNIT/0.5 ML VIAL SC SCH ×2 (10:18→21:28)
--- NOTE | 2017-04-03 11:38 | PN ---
Date/Time of Note Date/Time of Note DATE: 04/03/17 TIME: 11:37 Assessment/Plan VTE Prophylaxis VTE Prophylaxis Intervention: heparin Lines/Catheters IV [facility]ter Type (from [facility]): Peripheral IV Urinary Cath still in place: No Assessment/Plan Chief Complaint/Hosp Course ASSESSMENT AND PLAN: A 42-year-old male coming in with right foot redness and swelling with signs of osteomyelitis and diabetic foot ulcer likely. 1. Right foot cellulitis -still prominent, slowly improving. f/u podiatry and infectious disease consult rec's, - continue broad-spectrum antibiotics, IV fluids as well. - f/uTSH, A1c, and lipid panel. - f wound culture results, and again patient scheduled for I plus D procedure later today 2. Right foot diabetic ulcer. Again, see number 1. Again, will continue broad-spectrum antibiotics as in number 1 and get podiatry consult and infectious disease consult. Plan is for incision and drainage later today. 3. Lactic acidosis - resolved now. again, likely secondary to number 1. Again, continue broad-spectrum antibiotics, IV fluids, trend lactic acid, Tylenol p.r.n. pain and fevers. 4. History of type 2 diabetes.A1c = 10.6 - continue sliding scale insulin, and also Lantus. 5. Smoking history. Counseled on cessation, nicotine patch as well. 6. High cholesterol - f/u check lipid panel and consider starting statin. Consider PT consult as well. Problems: Subjective 24 Hr Interval Summary Free Text/Dictation Seen by infectious disease and podiatry team, awaiting I and D procedure for later today. Did have positive fevers 100.6 in the last 24 hours. Exam/Review of Systems Vital Signs Vitals Vital Signs Date Time Temp Pulse Resp B/P Pulse Ox O2 Delivery O2 Flow Rate FiO2 04/03/17 07:51 98.1 85 20 130/82 97 04/02/17 14:00 Room Air Intake and Output 04/02/17 04/02/17 04/03/17 15:00 23:00 07:00 Intake Total 100 ml 2336 ml 1300 ml Output Total 2500 ml 1000 ml Balance 100 ml -164 ml 300 ml Exam GENERAL: Patient is lying in bed, answers appropriately, no acute distress. HEENT: Pupils equal, round, react to light. Extraocular muscles intact. NECK: Supple. No thyromegaly. LUNGS: Clear to auscultation bilaterally. CARDIOVASCULAR: S1, S2 heard. No rubs or gallops. ABDOMEN: Soft, nontender, nondistended. Normal bowel sounds. No rebound or guarding. MUSCULOSKELETAL: His right foot, both the dorsal and plantar aspects, show warmth and redness and slight swelling on the plantar aspect of his right foot around the 5th digit. There is an ulcer noted with minimal drainage coming out. No blood. Otherwise, no lower extremity edema bilaterally. NEUROLOGIC: No focal deficits. Results Result Diagram: 04/03/17 0516 04/03/17 0516 Results 24 hrs Laboratory Tests Test 04/02/17 11:53 04/02/17 15:50 04/02/17 17:10 04/02/17 20:53 Bedside Glucose 238 H 224 H 245 H Lactic Acid Level 0.9 Test 04/03/17 01:39 04/03/17 05:16 04/03/17 07:58 Bedside Glucose 247 H 248 H White Blood Count 10.2 Red Blood Count 3.49 L Hemoglobin 11.2 L Hematocrit 31.9 L Mean Corpuscular Volume 91.4 Mean Corpuscular Hemoglobin 32.1 Mean Corpuscular Hemoglobin Concent 35.1 Red Cell Distribution Width 11.4 L Platelet Count 132 L Mean Platelet Volume 10.9 H Neutrophils % 71.7 Lymphocytes % 14.2 L Monocytes % 11.0 Eosinophils % 1.8 Basophils % 0.5 Nucleated Red Blood Cells % 0.0 Neutrophils # 7.3 Lymphocytes # 1.4 Monocytes # 1.1 H Eosinophils # 0.2 Basophils # 0.1 Nucleated Red Blood Cells # 0.0 Sodium Level 137 Potassium Level 3.9 Chloride Level 104 Carbon Dioxide Level 25 Anion Gap 12 Blood Urea Nitrogen 7 Creatinine 0.62 Glucose Level 213 Calcium Level 8.1 L Medications Medications Current Medications Ondansetron HCl (Zofran Inj) 4 mg Q6H PRN IV NAUSEA AND/OR VOMITING; Start 06/06 at 19:00 Acetaminophen (Tylenol Tab) 650 mg Q6H PRN PO PAIN LEVEL 1-3 OR FEVER Last administered on 04/02/17t 23:41; Admin Dose 650 MG; Start 04/01/17 at 19:00 Acetaminophen/ Hydrocodone Bitart ([place] (5/325)) 1 tab Q6H PRN PO MODERATE PAIN LEVEL 4-6 Last administered on 04/01/17 19:29; Admin Dose 1 TAB; Start 04/01/17 at 19:00 Morphine Sulfate (morphine) 2 mg Q4H PRN IV SEVERE PAIN LEVEL 7-10 Last administered on 04/03/17 08:03; Admin Dose 2 MG; Start 04/01/17 at 19:00 Docusate Sodium (Colace) 100 mg Q12H PRN PO CONSTIPATION; Start 04/01/17 at 19 :00 Magnesium Hydroxide (Milk Of Mag) 30 ml DAILY PRN PO CONSTIPATION; Start 04/01 at 19:00 Sodium Biphosphate/ Sodium Phosphate (Fleet Enema) 133 ml DAILY PRN [place] CONSTIPATION; Start 04/01/17 at 19:00 Heparin Sodium (Porcine) (Heparin (5000 Units/0.5 ml)) 5,000 unit Q12 SC Last administered on 04/03/17 10:18; Admin Dose 5,000 UNIT; Start 04/01/17 at 21: 00 Lorazepam 0.5 mg 0.5 mg Q6H PRN IV ANXIETY; Start 04/01/17 at 19:00 Sodium Chloride 1,000 ml @ 100 mls/hr Q10H IV Last administered on 04/03/17 11:32; Admin Dose 100 MLS/HR; Start 04/01/17 at 18:59 Piperacillin Sod/ Tazobactam Sod (Zosyn 3.375gm/ 100 ml (Pmx)) 100 ml @ 200 mls /hr Q6 IVPB Last administered on 04/03/17 11:33; Admin Dose 200 MLS/HR; Start 04/02/17 at 00:00 Vancomycin HCl (Vanco Iv Per Pharmacy) VANCOMYCIN PER PHARMACY NOTE XX ; Start 04/01/17 at 19:00 Hydralazine HCl (Apresoline) 10 mg Q6H PRN IV ELEVATED BLOOD PRESSURE; Start 04/01/17 at 19:00 Clonidine (Catapres) 0.1 mg Q6H PRN PO ELEVATED BLOOD PRESSURE; Start at 19:00 Nitroglycerin (Nitroglycerin (Sl Tab) 0.4 Mg) 1 tab Q5M PRN SL ANGINA; Start 04/01/17 at 19:00 Diagnostic Test (Pha) (Accu-Chek) 1 ea 02 XX ; Start 04/02/17 at 02:00 Insulin Glargine (Lantus) 20 unit DAILY@08 SC Last administered on 04/03/17 08:14; Admin Dose 20 UNIT; Start 04/02/17 at 08:00 Miscellaneous Information 1 ea NOTE XX ; Start 04/01/17 at 19:30 Glucose (Glutose) 15 gm Q15M PRN PO DECREASED GLUCOSE; Start 04/01/17 at 19:30 Glucose (Glutose) 22.5 gm Q15M PRN PO DECREASED GLUCOSE; Start 04/01/17 at 19: 30 Dextrose (D50w Syringe) 25 ml Q15M PRN IV DECREASED GLUCOSE; Start 04/01/17 at 19:30 Dextrose (D50w Syringe) 50 ml Q15M PRN IV DECREASED GLUCOSE; Start 04/01/17 at 19:30 Glucagon (Glucagen) 1 mg Q15M PRN IM DECREASED GLUCOSE; Start 04/01/17 at 19: 30 Glucose (Glutose) 15 gm Q15M PRN BUCCAL DECREASED GLUCOSE; Start 04/01/17 at 19:30 Nicotine 1 patch 1 patch DAILY TRANSDERM ; Start 04/01/17 at 19:30 Vancomycin HCl/ Sodium Chloride (Vancocin/NS) 250 ml @ 83.333 mls/ hr Q12H IVPB Last administered on 04/03/17 00:59; Admin Dose 83.333 MLS/HR; Start at 13:00 Miscellaneous Information (*Rx Drug Level Order Reminder*) VANCO TROUGH @ 1, 200 ON ... ONCE ONCE XX ; Start 04/03/17 at 12:00; Stop 04/03/17 at 12:01 LAURA NESBITT Apr 03, 2017 11:38
[2017-04-03] MEDS ORDERED: MIDAZOLAM 1 MG/ML 2 ML INJ ONE (15:03)
[2017-04-03] MEDS ORDERED: METOCLOPRAMIDE 10 MG INJ ONE (15:03)
[2017-04-03] MEDS ORDERED: FENTAnyl 50 MCG/ML VIAL ONE (15:03)
--- NOTE | 2017-04-03 15:27 | HPN ---
Date/Time of Note Date/Time of Note DATE: 04/03/17 TIME: 15:27 Interval H&P Admission Note Pt. seen H&P reviewed: No system changes ALEXANDRA VASQUEZ DPM Apr 03, 2017 15:27
[2017-04-03] MEDS ORDERED: HYDROmorphONE (0.2 MG/ML) 10ML SYG IV PRN ×3 (15:30)
[2017-04-03] MEDS ORDERED: MEPERIDINE 25 MG INJ IV PRN (15:30)
[2017-04-03] MEDS ORDERED: DIPHENHYDRAMINE 50 MG INJ IV PRN (15:30)
[2017-04-03] MEDS ORDERED: BUPIVACAINE 0.5% (SDV) 30 ML INJ ONE (15:50)
[2017-04-03] MEDS ORDERED: POLYMYXIN/BACITRACIN 1L IRRIG ONE (15:51)
--- NOTE | 2017-04-03 15:56 | OPPN ---
Date/Time of Note Date/Time of Note DATE: 04/03/17 TIME: 15:55 Operative Report Preoperative Diagnosis Right foot deep abscess with cellulitis DM with polyneuropathy Postoperative Diagnosis Right foot deep abscess with cellulitis DM with polyneuropathy Operation/Procedure Performed Incision and drainage right foot abscess with cellulitis Surgeon see signature line audiology assistant NONE Anesthesia: general Estimated blood loss: minimal Transfusion Required none Specimen Right abscess culture Grafts/Implants none Complications none ALEXANDRA VASQUEZ DPM Apr 03, 2017 15:56
--- NOTE | 2017-04-03 15:56 | OPR ---
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 Patient was evaluated and was found to have worsened right foot. Risks and complications discussed included, but are not limited to, postoperative infection, postoperative pain, hardware failure, failure of surgery to correct the problem, need for additional surgical procedures, deep venous thrombosis, limb loss and loss of life. Patient understands the discussion and agrees to the procedure. An informed consent was signed, obtained and placed in the chart. No guarantees or warrantees was given or implied as to the outcome of the procedure either in verbal or written form. Procedure Description The patient was seen in the preoperative area. The proposed surgery was discussed with patient in great detail. Risks and complications of this type of surgery was discussed with patient in great detail. Opportunity was given to patient to ask questions and all questions were answered. The patient acknowledges understanding of the discussion. An informed consent was then obtained, signed and placed in the chart. Patient was taken to the operating room and was placed on the operating table in the supine position. All bony prominences were padded properly. A timeout was called by the circulating nurse. Everyone in the operating room was agreeable to the timeout. The patient was then placed under general anesthesia by the anesthesiologist. Attention was directed to the right foot. Edema, erythema and fluctuance noted on palpation of plantar 3rd, 4th and 5th MPJs. A #15 blade use used to make an incision in the plantar 4th webspace. Immediate pus was noted and drained; the drainage was cultured. Necrotic soft tissue was sharply debrided. Copious amounts of sterile normal saline and Bacitracin was used to irrigated the wound. Blunt dissection was made and all pus pockets were explored and drained. Next, the wound was irrigated again and 1/4 inch iodoform packing was used. Sterile dressing was applied. The patient tolerated the procedure and anesthesia well. He was transferred to the recovery room with vital signs stable and vascular status intact to the right foot. Post op orders were written. Patient is to remain non weight bearing on his right foot. Patient will be followed in house. ALEXANDRA VASQUEZ DPM Apr 03, 2017 15:56
--- NOTE | 2017-04-03 16:18 | CONS ---
Date/Time of Note Date/Time of Note DATE: 04/03/17 TIME: 16:05 Assessment/Plan Assessment/Plan Chief Complaint/Hosp Course ID PROGRESS NOTE CURRENT ABX: =>Vanco IV + Zosyn 24H INTERVAL SUMMARY POD #0-> s/p DATE: 04/03/17 Incision and drainage right foot abscess with cellulitis * NO fevers, WBC normalized today, ESR 105 -- BCx (-) * Wound Cx WOUND CULTURE Preliminary Organism 1 MIXED GRAM POSITIVE ORGANISMS QUANTITY 2+ EXAM GEN: VSS, NAD HEENT: Unremarkable NECK: supple CVS: RRR, S1 and S2 CHEST: Equal chest rise bilaterally without dyspnea on observation ABD: Soft, NT, EXT: warm, DSG C/D/I SKIN: No rash, no diaphoresis ID ASSESSMENT 42 yo M admit with: 1. Sepsis criteria on admission TMax 101.6, leukocytosis, tachycardia (HR 124) , lactic acidosis 2/2 #2 * BCx (-) preliminary 2. Right foot cellulitis -> w/ Right foot diabetic ulcer/great toe w/high ESR 105 * No MRI evidence of osteomyelitis. 4. History of type 2 diabetes.A1c = 10.6 - continue sliding scale insulin, and also 5. Diabetic peripheral neuropathy 6. Transient HTN readings in setting of acute sepsis 7. High cholesterol - f/u check lipid panel and consider 8. Tobaccoism INVASIVES: PIV ABX ALLERGY: NKDA CURRENT ABX: =>Vanco IV + Zosyn ID RECOMMENDATIONS 1. Continue current ABX -> await cultures from I&D POD #0-> s/p DATE: 04/03/17 Incision and drainage right foot abscess with cellulitis . Problems: Consultation Date/Type/Reason Admit Date/Time Apr 01, 2017 at 17:32 Initial Consult Date 04/02/17 Type of Consultation: ID Exam/Review of Systems Vital Signs Vitals Vital Signs Date Time Temp Pulse Resp B/P Pulse Ox O2 Delivery O2 Flow Rate FiO2 04/03/17 14:04 98.6 82 20 134/87 95 04/03/17 13:55 Room Air Intake and Output 04/02/17 04/02/17 04/03/17 15:00 23:00 07:00 Intake Total 100 ml 2336 ml 1300 ml Output Total 2500 ml 1000 ml Balance 100 ml -164 ml 300 ml Results Result Diagram: 04/03/17 0516 04/03/17 0516 Results 24 hrs Laboratory Tests Test 04/02/17 17:10 04/02/17 20:53 04/03/17 01:39 04/03/17 05:16 Bedside Glucose 224 H 245 H 247 H White Blood Count 10.2 Red Blood Count 3.49 L Hemoglobin 11.2 L Hematocrit 31.9 L Mean Corpuscular Volume 91.4 Mean Corpuscular Hemoglobin 32.1 Mean Corpuscular Hemoglobin Concent 35.1 Red Cell Distribution Width 11.4 L Platelet Count 132 L Mean Platelet Volume 10.9 H Neutrophils % 71.7 Lymphocytes % 14.2 L Monocytes % 11.0 Eosinophils % 1.8 Basophils % 0.5 Nucleated Red Blood Cells % 0.0 Neutrophils # 7.3 Lymphocytes # 1.4 Monocytes # 1.1 H Eosinophils # 0.2 Basophils # 0.1 Nucleated Red Blood Cells # 0.0 Sodium Level 137 Potassium Level 3.9 Chloride Level 104 Carbon Dioxide Level 25 Anion Gap 12 Blood Urea Nitrogen 7 Creatinine 0.62 Glucose Level 213 Calcium Level 8.1 L Test 04/03/17 07:58 04/03/17 11:58 04/03/17 12:10 Bedside Glucose 248 H 206 Vancomycin Level Trough 5.1 L Medications Medications Current Medications Ondansetron HCl (Zofran Inj) 4 mg Q6H PRN IV NAUSEA AND/OR VOMITING; Start 06/06 at 19:00 Acetaminophen (Tylenol Tab) 650 mg Q6H PRN PO PAIN LEVEL 1-3 OR FEVER Last administered on 04/02/17 23:41; Admin Dose 650 MG; Start 04/01/17 at 19:00 Acetaminophen/ Hydrocodone Bitart ([place] (5/325)) 1 tab Q6H PRN PO MODERATE PAIN LEVEL 4-6 Last administered on 04/01/17 19:29; Admin Dose 1 TAB; Start 04/01/17 at 19:00 Morphine Sulfate (morphine) 2 mg Q4H PRN IV SEVERE PAIN LEVEL 7-10 Last administered on 04/03/17 08:03; Admin Dose 2 MG; Start 04/01/17 at 19:00 Docusate Sodium (Colace) 100 mg Q12H PRN PO CONSTIPATION; Start 04/01/17 at 19 :00 Magnesium Hydroxide (Milk Of Mag) 30 ml DAILY PRN PO CONSTIPATION; Start 04/01 at 19:00 Sodium Biphosphate/ Sodium Phosphate (Fleet Enema) 133 ml DAILY PRN [place] CONSTIPATION; Start 04/01/17 at 19:00 Heparin Sodium (Porcine) (Heparin (5000 Units/0.5 ml)) 5,000 unit Q12 SC Last administered on 04/03/17 10:18; Admin Dose 5,000 UNIT; Start 04/01/17 at 21: 00 Lorazepam 0.5 mg 0.5 mg Q6H PRN IV ANXIETY; Start 04/01/17 at 19:00 Sodium Chloride 1,000 ml @ 100 mls/hr Q10H IV Last administered on 04/03/17 11:32; Admin Dose 100 MLS/HR; Start 04/01/17 at 18:59 Piperacillin Sod/ Tazobactam Sod (Zosyn 3.375gm/ 100 ml (Pmx)) 100 ml @ 200 mls /hr Q6 IVPB Last administered on 04/03/17 11:33; Admin Dose 200 MLS/HR; Start 04/02/17 at 00:00 Vancomycin HCl (Vanco Iv Per Pharmacy) VANCOMYCIN PER PHARMACY NOTE XX ; Start 04/01/17 at 19:00 Hydralazine HCl (Apresoline) 10 mg Q6H PRN IV ELEVATED BLOOD PRESSURE; Start 04/01/17 at 19:00 Clonidine (Catapres) 0.1 mg Q6H PRN PO ELEVATED BLOOD PRESSURE; Start at 19:00 Nitroglycerin (Nitroglycerin (Sl Tab) 0.4 Mg) 1 tab Q5M PRN SL ANGINA; Start 04/01/17 at 19:00 Diagnostic Test (Pha) (Accu-Chek) 1 ea 02 XX ; Start 04/02/17 at 02:00 Miscellaneous Information 1 ea NOTE XX ; Start 04/01/17 at 19:30 Glucose (Glutose) 15 gm Q15M PRN PO DECREASED GLUCOSE; Start 04/01/17 at 19:30 Glucose (Glutose) 22.5 gm Q15M PRN PO DECREASED GLUCOSE; Start 04/01/17 at 19: 30 Dextrose (D50w Syringe) 25 ml Q15M PRN IV DECREASED GLUCOSE; Start 04/01/17 at 19:30 Dextrose (D50w Syringe) 50 ml Q15M PRN IV DECREASED GLUCOSE; Start 04/01/17 at 19:30 Glucagon (Glucagen) 1 mg Q15M PRN IM DECREASED GLUCOSE; Start 04/01/17 at 19: 30 Glucose (Glutose) 15 gm Q15M PRN BUCCAL DECREASED GLUCOSE; Start 04/01/17 at 19:30 Nicotine 1 patch 1 patch DAILY TRANSDERM ; Start 04/01/17 at 19:30 Vancomycin HCl/ Sodium Chloride (Vancocin/NS) 250 ml @ 83.333 mls/ hr Q12H IVPB Last administered on 04/03/17t 13:35; Admin Dose 83.333 MLS/HR; Start at 13:00; Stop 04/03/17 at 18:00 Insulin Glargine 28 unit 28 unit DAILY@08 SC ; Start 04/04/17 at 08:00 Vancomycin HCl/ Sodium Chloride (Vancocin/NS) 250 ml @ 83.333 mls/ hr Q8H IVPB ; Start 04/03/17 at 21:00 ROXIE MOSLEY NP Apr 03, 2017 16:18
[2017-04-03] MEDS: ACETAMINOPHEN 325 MG TAB PO PRN (20:08)
[2017-04-03] MEDS: HYDROCODONE/APAP (5/325) TAB PO PRN (21:15)
[2017-04-04] MEDS: PIPER-TAZO 3.375 GM IV (PMX) 100 ML IVPB SCH ×4 (00:25→18:15)
[2017-04-04 01:57] VITALS: BP 118/69; RESP 20
[2017-04-04] MEDS: ACCU-CHEK XX SCH (02:00)
[2017-04-04] MEDS: VANCOMYCIN 1.25 GM in SOD CHLORIDE 0.9% 250 ML IVPB SCH ×3 (05:56→21:00)
[2017-04-04] MEDS: HYDROCODONE/APAP (5/325) TAB PO PRN ×2 (06:00→17:32)
[2017-04-04 06:02] LABS: BASOPHIL # 0.1 10^3/ul (0.0-0.1); BASOPHILS % 0.4 % (0.0-2.0); EOSINOPHILS # 0.2 10^3/ul (0.0-0.5); HEMATOCRIT 33.5 % (42.0-52.0); HEMOGLOBIN 11.4 g/dl (14.0-18.0); LYMPHOCYTES # 1.1 10^3/ul (0.8-2.9); LYMPHOCYTES % 9.7 % (15.0-51.0); MEAN CORPUSCULAR HEMOGLOBIN 31.3 pg (29.0-33.0); MEAN PLATELET VOLUME 10.5 fl (7.4-10.4); MONOCYTE # 1.2 10^3/ul (0.3-0.9); NEUTROPHIL # 8.6 10^3/ul (1.6-7.5); NEUTROPHILS % 76.2 % (39.0-77.0); PLATELET COUNT 152 10^3/UL (140-415); RED BLOOD COUNT 3.64 10^6/ul (4.70-6.10); RED CELL DISTRIBUTION WIDTH 11.4 % (11.5-14.5); WHITE BLOOD COUNT 11.2 10^3/ul (4.8-10.8)
[2017-04-04 06:48] LABS: CALCIUM 8.3 mg/dl (8.4-10.2); CREATININE 1.09 mg/dl (0.61-1.24); POTASSIUM 3.7 mmol/L (3.5-5.1)
[2017-04-04] MEDS: SOD CHLORIDE 0.9% 1,000 ML IV SCH ×3 (06:59→21:31)
[2017-04-04 07:28] VITALS: BP 133/83; RESP 19
[2017-04-04] MEDS: INSULIN GLARGINE [LANtus] 3 ML PEN SC SCH (08:16)
[2017-04-04] MEDS: INSULIN ASPART [NOVOLOG] 3 ML PEN SC SCH ×7 (08:16→21:40)
[2017-04-04] MEDS: HEPARIN 5,000 UNIT/0.5 ML VIAL SC SCH ×2 (08:28→21:43)
[2017-04-04] MEDS: NICOTINE (14 MG/24 HR) PATCH TRANSDERM SCH (08:29)
--- NOTE | 2017-04-04 09:10 | PN ---
Date/Time of Note Date/Time of Note DATE: 04/04/17 TIME: 09:06 Assessment/Plan VTE Prophylaxis VTE Prophylaxis Intervention: heparin Lines/Catheters IV [facility] Peripheral IV Urinary Cath still in place: No Assessment/Plan Chief Complaint/Hosp Course ASSESSMENT AND PLAN: A 42-year-old male coming in with right foot redness and swelling with signs of osteomyelitis and diabetic foot ulcer likely. 1. Right foot cellulitis -still prominent, slowly improving. Patient had IND procedure performed of plantar ulcer near fifth digit yesterday POD # 1 - f/u podiatry and infectious disease consult rec's, - continue broad-spectrum antibiotics, IV fluids as well. - f wound culture results final 2. Right foot diabetic ulcer. Again, see number 1. -Status post I&D, continue broad-spectrum antibiotics -Follow-up podiatry and infectious disease 3. Lactic acidosis - resolved now. again, likely secondary to number 1. Again, continue broad-spectrum antibiotics, IV fluids, trend lactic acid, Tylenol p.r.n. pain and fevers. 4. History of type 2 diabetes.A1c = 10.6 sugars improved now - continue sliding scale insulin, aspart with meals, and also Lantus. 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 Smoking history. Counseled on cessation, nicotine patch as well. 6. High cholesterol - f/u check lipid panel and consider starting statin. Consider PT consult as well. Problems: Subjective 24 Hr Interval Summary Free Text/Dictation Had incision and drainage performed of foot yesterday, no acute events overnight , tolerating diet, sugars improved. Exam/Review of Systems Vital Signs Vitals Vital Signs Date Time Temp Pulse Resp B/P Pulse Ox O2 Delivery O2 Flow Rate FiO2 04/04/17 07:28 98.2 81 19 133/83 97 04/03/17 18:30 Room Air Intake and Output 04/03/17 04/03/17 04/04/17 14:59 22:59 06:59 Intake Total 550 ml 1890 ml 1480 ml Output Total 905 ml 3200 ml Balance 550 ml 985 ml -1720 ml Exam GENERAL: Patient is lying in bed, answers appropriately, no acute distress. HEENT: Pupils equal, round, react to light. Extraocular muscles intact. NECK: Supple. No thyromegaly. LUNGS: Clear to auscultation bilaterally. CARDIOVASCULAR: S1, S2 heard. No rubs or gallops. ABDOMEN: Soft, nontender, nondistended. Normal bowel sounds. No rebound or guarding. MUSCULOSKELETAL: His right foot, both the dorsal and plantar aspects, show less warmth and redness and some less swelling on the plantar aspect of his right foot around the 5th digit. Ulcer covered plantar aspect Otherwise, no lower extremity edema bilaterally. NEUROLOGIC: No focal deficits. Results Result Diagram: 04/04/17 0526 04/04/17 0525 Results 24 hrs Laboratory Tests Test 04/03/17 11:58 04/03/17 12:10 04/03/17 17:26 04/03/17 21:26 Vancomycin Level Trough 5.1 L Bedside Glucose 206 165 180 Test 04/03/17 22:25 04/04/17 05:25 04/04/17 05:26 04/04/17 08:11 Bedside Glucose 206 209 Sodium Level 140 Potassium Level 3.7 Chloride Level 104 Carbon Dioxide Level 24 Anion Gap 16 Blood Urea Nitrogen 12 Creatinine 1.09 Glucose Level 200 Calcium Level 8.3 L White Blood Count 11.2 H Red Blood Count 3.64 L Hemoglobin 11.4 L Hematocrit 33.5 L Mean Corpuscular Volume 92.0 Mean Corpuscular Hemoglobin 31.3 Mean Corpuscular Hemoglobin Concent 34.0 Red Cell Distribution Width 11.4 L Platelet Count 152 Mean Platelet Volume 10.5 H Neutrophils % 76.2 Lymphocytes % 9.7 L Monocytes % 11.0 Eosinophils % 2.0 Basophils % 0.4 Nucleated Red Blood Cells % 0.0 Neutrophils # 8.6 H Lymphocytes # 1.1 Monocytes # 1.2 H Eosinophils # 0.2 Basophils # 0.1 Nucleated Red Blood Cells # 0.0 Medications Medications Current Medications Ondansetron HCl (Zofran Inj) 4 mg Q6H PRN IV NAUSEA AND/OR VOMITING; Start 06/06 at 19:00 Acetaminophen (Tylenol Tab) 650 mg Q6H PRN PO PAIN LEVEL 1-3 OR FEVER Last administered on 04/03/17 20:08; Admin Dose 650 MG; Start 04/01/17 at 19:00 Acetaminophen/ Hydrocodone Bitart ([place] (5/325)) 1 tab Q6H PRN PO MODERATE PAIN LEVEL 4-6 Last administered on 04/04/17 06:00; Admin Dose 1 TAB; Start 04/01/17 at 19:00 Morphine Sulfate (morphine) 2 mg Q4H PRN IV SEVERE PAIN LEVEL 7-10 Last administered on 04/03/17 18:42; Admin Dose 2 MG; Start 04/01/17 at 19:00 Docusate Sodium (Colace) 100 mg Q12H PRN PO CONSTIPATION; Start 04/01/17 at 19 :00 Magnesium Hydroxide (Milk Of Mag) 30 ml DAILY PRN PO CONSTIPATION; Start 04/01 at 19:00 Sodium Biphosphate/ Sodium Phosphate (Fleet Enema) 133 ml DAILY PRN [place] CONSTIPATION; Start 04/01/17 at 19:00 Heparin Sodium (Porcine) (Heparin (5000 Units/0.5 ml)) 5,000 unit Q12 SC Last administered on 04/04/17 08:28; Admin Dose 5,000 UNIT; Start 04/01/17 at 21: 00 Lorazepam 0.5 mg 0.5 mg Q6H PRN IV ANXIETY; Start 04/01/17 at 19:00 Sodium Chloride 1,000 ml @ 100 mls/hr Q10H IV Last administered on 04/03/17 21:12; Admin Dose 100 MLS/HR; Start 04/01/17 at 18:59 Piperacillin Sod/ Tazobactam Sod (Zosyn 3.375gm/ 100 ml (Pmx)) 100 ml @ 200 mls /hr Q6 IVPB Last administered on 04/04/17 05:25; Admin Dose 200 MLS/HR; Start 04/02/17 at 00:00 Vancomycin HCl (Vanco Iv Per Pharmacy) VANCOMYCIN PER PHARMACY NOTE XX ; Start 04/01/17 at 19:00 Hydralazine HCl (Apresoline) 10 mg Q6H PRN IV ELEVATED BLOOD PRESSURE; Start 04/01/17 at 19:00 Clonidine (Catapres) 0.1 mg Q6H PRN PO ELEVATED BLOOD PRESSURE; Start at 19:00 Nitroglycerin (Nitroglycerin (Sl Tab) 0.4 Mg) 1 tab Q5M PRN SL ANGINA; Start 04/01/17 at 19:00 Diagnostic Test (Pha) (Accu-Chek) 1 ea 02 XX ; Start 04/02/17 at 02:00 Miscellaneous Information 1 ea NOTE XX ; Start 04/01/17 at 19:30 Glucose (Glutose) 15 gm Q15M PRN PO DECREASED GLUCOSE; Start 04/01/17 at 19:30 Glucose (Glutose) 22.5 gm Q15M PRN PO DECREASED GLUCOSE; Start 04/01/17 at 19: 30 Dextrose (D50w Syringe) 25 ml Q15M PRN IV DECREASED GLUCOSE; Start 04/01/17 at 19:30 Dextrose (D50w Syringe) 50 ml Q15M PRN IV DECREASED GLUCOSE; Start 04/01/17 at 19:30 Glucagon (Glucagen) 1 mg Q15M PRN IM DECREASED GLUCOSE; Start 04/01/17 at 19: 30 Glucose (Glutose) 15 gm Q15M PRN BUCCAL DECREASED GLUCOSE; Start 04/01/17 at 19:30 Nicotine (Nicoderm 14 Mg/ 24hr) 1 patch DAILY TRANSDERM ; Start 04/01/17 at 19: 30 Insulin Glargine 28 unit 28 unit DAILY@08 SC Last administered on 04/04/17 08 :16; Admin Dose 28 UNIT; Start 04/04/17 at 08:00 Vancomycin HCl/ Sodium Chloride (Vancocin/NS) 250 ml @ 83.333 mls/ hr Q8H IVPB Last administered on 04/04/17 05:56; Admin Dose 83.333 MLS/HR; Start at 21:00 LAURA NESBITT Apr 04, 2017 09:09
[2017-04-04 14:36] VITALS: BP 122/79; RESP 18
--- NOTE | 2017-04-04 15:37 | CONS ---
Date/Time of Note Date/Time of Note DATE: 04/04/17 TIME: 15:27 Consultation Date/Type/Reason Admit Date/Time Apr 01, 2017 at 17:32 Initial Consult Date Subjective: 42 Y/O male with rt foot cellulitis and abscess. Awake, alert. Denies fever. States some pain. s/p DATE: 04/03/17 Incision and drainage right foot abscess with cellulitis. * NO fevers, WBC normalized today, ESR 105 -- BCx (-) * Wound Cx WOUND CULTURE Preliminary Organism 1 STAPHYLOCOCCUS AUREUS QUANTITY 2+ Organism 2 STAPHYLOCOCCUS SPECIES QUANTITY 1+ Organism 3 ALPHA HEMOLYTIC STREP SPP QUANTITY SCANT GROWTH . VIRIDANS GROUP GRAM STAIN Final POLYMORPH. LEUKOCYTE 1+ GRAM POS COCCI IN PAIRS 2+ EXAM: VS: 122/79 P:89 R:18 SO2: 99% T: 97.5 GEN: VSS, NAD HEENT: Unremarkable NECK: supple CVS: RRR, S1 and S2 CHEST: Equal chest rise bilaterally without dyspnea on observation ABD: Soft, NT, EXT: warm, DSG C/D/I SKIN: No rash, no diaphoresis LABS: Reviewed. WBC=11.2 ASSESSMENT: 42 yo M admit with: 1. Sepsis criteria on admission TMax 101.6, leukocytosis, tachycardia (HR 124) , lactic acidosis 2/2 #2 * BCx (-) preliminary 2. Right foot cellulitis -> w/ Right foot diabetic ulcer/great toe w/high ESR 105 * No MRI evidence of osteomyelitis. 4. History of type 2 diabetes.A1c = 10.6 - continue sliding scale insulin, and also 5. Diabetic peripheral neuropathy 6. Transient HTN readings in setting of acute sepsis 7. High cholesterol - f/u check lipid panel and consider 8. Tobaccoism INVASIVES: PIV ABX ALLERGY: NKDA CURRENT ABX: =>Vanco IV + Zosyn Plan: Pt is stable. Continue current ABX -> await cultures from I&D . Wound care and pain management. Type of Consultation: ID Exam/Review of Systems Vital Signs Vitals Vital Signs Date Time Temp Pulse Resp B/P Pulse Ox O2 Delivery O2 Flow Rate FiO2 04/04/17 14:36 97.5 89 18 122/79 99 04/03/17 18:30 Room Air Intake and Output 04/03/17 04/03/17 04/04/17 15:00 23:00 07:00 Intake Total 550 ml 1890 ml 1480 ml Output Total 905 ml 3200 ml Balance 550 ml 985 ml -1720 ml Results Result Diagram: 04/04/1726 04/04/17 0525 Results 24 hrs Laboratory Tests Test 04/03/17 17:26 04/03/17 21:26 04/03/17 22:25 04/04/17 05:25 Bedside Glucose 165 180 206 Sodium Level 140 Potassium Level 3.7 Chloride Level 104 Carbon Dioxide Level 24 Anion Gap 16 Blood Urea Nitrogen 12 Creatinine 1.09 Glucose Level 200 Calcium Level 8.3 L Test 04/04/17 05:26 04/04/17 08:11 04/04/17 12:10 White Blood Count 11.2 H Red Blood Count 3.64 L Hemoglobin 11.4 L Hematocrit 33.5 L Mean Corpuscular Volume 92.0 Mean Corpuscular Hemoglobin 31.3 Mean Corpuscular Hemoglobin Concent 34.0 Red Cell Distribution Width 11.4 L Platelet Count 152 Mean Platelet Volume 10.5 H Neutrophils % 76.2 Lymphocytes % 9.7 L Monocytes % 11.0 Eosinophils % 2.0 Basophils % 0.4 Nucleated Red Blood Cells % 0.0 Neutrophils # 8.6 H Lymphocytes # 1.1 Monocytes # 1.2 H Eosinophils # 0.2 Basophils # 0.1 Nucleated Red Blood Cells # 0.0 Bedside Glucose 209 166 Medications Medications Current Medications Ondansetron HCl (Zofran Inj) 4 mg Q6H PRN IV NAUSEA AND/OR VOMITING; Start 06/06 at 19:00 Acetaminophen (Tylenol Tab) 650 mg Q6H PRN PO PAIN LEVEL 1-3 OR FEVER Last administered on 04/03/17 20:08; Admin Dose 650 MG; Start 04/01/17 at 19:00 Acetaminophen/ Hydrocodone Bitart ([place] (5/325)) 1 tab Q6H PRN PO MODERATE PAIN LEVEL 4-6 Last administered on 04/04/17 06:00; Admin Dose 1 TAB; Start 04/01/17 at 19:00 Morphine Sulfate (morphine) 2 mg Q4H PRN IV SEVERE PAIN LEVEL 7-10 Last administered on 04/03/17 18:42; Admin Dose 2 MG; Start 04/01/17 at 19:00 Docusate Sodium (Colace) 100 mg Q12H PRN PO CONSTIPATION; Start 04/01/17 at 19 :00 Magnesium Hydroxide (Milk Of Mag) 30 ml DAILY PRN PO CONSTIPATION; Start 04/01 at 19:00 Sodium Biphosphate/ Sodium Phosphate (Fleet Enema) 133 ml DAILY PRN [place] CONSTIPATION; Start 04/01/17 at 19:00 Heparin Sodium (Porcine) (Heparin (5000 Units/0.5 ml)) 5,000 unit Q12 SC Last administered on 04/04/17 08:28; Admin Dose 5,000 UNIT; Start 04/01/17 at 21: 00 Lorazepam 0.5 mg 0.5 mg Q6H PRN IV ANXIETY; Start 04/01/17 at 19:00 Sodium Chloride 1,000 ml @ 100 mls/hr Q10H IV Last administered on 04/03/17 21:12; Admin Dose 100 MLS/HR; Start 04/01/17 at 18:59 Piperacillin Sod/ Tazobactam Sod (Zosyn 3.375gm/ 100 ml (Pmx)) 100 ml @ 200 mls /hr Q6 IVPB Last administered on 04/04/17 12:44; Admin Dose 200 MLS/HR; Start 04/02/17 at 00:00 Vancomycin HCl (Vanco Iv Per Pharmacy) VANCOMYCIN PER PHARMACY NOTE XX ; Start 04/01/17 at 19:00 Hydralazine HCl (Apresoline) 10 mg Q6H PRN IV ELEVATED BLOOD PRESSURE; Start 04/01/17 at 19:00 Clonidine (Catapres) 0.1 mg Q6H PRN PO ELEVATED BLOOD PRESSURE; Start at 19:00 Nitroglycerin (Nitroglycerin (Sl Tab) 0.4 Mg) 1 tab Q5M PRN SL ANGINA; Start 04/01/17 at 19:00 Diagnostic Test (Pha) (Accu-Chek) 1 ea 02 XX ; Start 04/02/17 at 02:00 Miscellaneous Information 1 ea NOTE XX ; Start 04/01/17 at 19:30 Glucose (Glutose) 15 gm Q15M PRN PO DECREASED GLUCOSE; Start 04/01/17 at 19:30 Glucose (Glutose) 22.5 gm Q15M PRN PO DECREASED GLUCOSE; Start 04/01/17 at 19: 30 Dextrose (D50w Syringe) 25 ml Q15M PRN IV DECREASED GLUCOSE; Start 04/01/17 at 19:30 Dextrose (D50w Syringe) 50 ml Q15M PRN IV DECREASED GLUCOSE; Start 04/01/17 at 19:30 Glucagon (Glucagen) 1 mg Q15M PRN IM DECREASED GLUCOSE; Start 04/01/17 at 19: 30 Glucose (Glutose) 15 gm Q15M PRN BUCCAL DECREASED GLUCOSE; Start 04/01/17 at 19:30 Nicotine (Nicoderm 14 Mg/ 24hr) 1 patch DAILY TRANSDERM ; Start 04/01/17 at 19: 30 Insulin Glargine 28 unit 28 unit DAILY@08 SC Last administered on 04/04/17 08 :16; Admin Dose 28 UNIT; Start 04/04/17 at 08:00 Vancomycin HCl/ Sodium Chloride (Vancocin/NS) 250 ml @ 83.333 mls/ hr Q8H IVPB Last administered on 04/04/17 14:22; Admin Dose 83.333 MLS/HR; Start at 21:00 Miscellaneous Information (*Rx Drug Level Order Reminder*) VANCOMYCIN TROUGH AT 1999 ONCE ONCE XX ; Start 04/04/17 at 20:00; Stop 04/04/17 at 20:01 SARITA MAK Apr 04, 2017 15:37
[2017-04-04 19:56] VITALS: BP 136/86; RESP 18
[2017-04-04] MEDS: morphine 2 MG INJ IV PRN (21:31)
[2017-04-05] MEDS: PIPER-TAZO 3.375 GM IV (PMX) 100 ML IVPB SCH ×3 (00:33→12:38)
[2017-04-05 01:53] VITALS: BP 131/85; RESP 18
[2017-04-05] MEDS: ACCU-CHEK XX SCH (02:45)
[2017-04-05] MEDS: morphine 2 MG INJ IV PRN (02:55)
[2017-04-05] MEDS: SOD CHLORIDE 0.9% 1,000 ML IV SCH ×2 (02:59→12:59)
[2017-04-05] MEDS ORDERED: VANCOMYCIN 1.5 GM in SOD CHLORIDE 0.9% 250 ML IVPB SCH (03:00)
[2017-04-05] MEDS: HYDROCODONE/APAP (5/325) TAB PO PRN ×2 (06:09→21:56)
[2017-04-05 08:00] VITALS: BP 124/74; RESP 18
[2017-04-05 08:21] LABS: BASOPHILS % 0.3 % (0.0-2.0); EOSINOPHILS # 0.4 10^3/ul (0.0-0.5); HEMATOCRIT 32.1 % (42.0-52.0); HEMOGLOBIN 10.7 g/dl (14.0-18.0); LYMPHOCYTES # 1.1 10^3/ul (0.8-2.9); LYMPHOCYTES % 11.6 % (15.0-51.0); MEAN CORPUSCULAR HEMOGLOBIN 30.7 pg (29.0-33.0); MEAN CORPUSCULAR HGB CONC 33.3 g/dl (32.0-37.0); MEAN PLATELET VOLUME 10.8 fl (7.4-10.4); MONOCYTE # 0.8 10^3/ul (0.3-0.9); MONOCYTES % 8.6 % (0.0-11.0); NEUTROPHIL # 7.1 10^3/ul (1.6-7.5); NEUTROPHILS % 74.8 % (39.0-77.0); PLATELET COUNT 149 10^3/UL (140-415); RED BLOOD COUNT 3.49 10^6/ul (4.70-6.10); RED CELL DISTRIBUTION WIDTH 11.8 % (11.5-14.5); WHITE BLOOD COUNT 9.5 10^3/ul (4.8-10.8)
[2017-04-05] MEDS: INSULIN ASPART [NOVOLOG] 3 ML PEN SC SCH ×7 (08:22→22:05)
[2017-04-05] MEDS: HEPARIN 5,000 UNIT/0.5 ML VIAL SC SCH ×2 (08:22→22:06)
[2017-04-05] MEDS: INSULIN GLARGINE [LANtus] 3 ML PEN SC SCH (08:22)
[2017-04-05] MEDS: NICOTINE (14 MG/24 HR) PATCH TRANSDERM SCH (08:23)
[2017-04-05 08:42] LABS: CALCIUM 8.2 mg/dl (8.4-10.2); CREATININE 1.09 mg/dl (0.61-1.24); POTASSIUM 3.7 mmol/L (3.5-5.1)
[2017-04-05] MEDS ORDERED: LANT3I SC (10:42)
[2017-04-05] MEDS ORDERED: NOVO3I SC (10:42)
[2017-04-05] MEDS ORDERED: Nicotine (14 Mg/24 Hr) TRANSDERM (10:42)
[2017-04-05] MEDS ORDERED: CLIN-72 PO (10:44)
[2017-04-05] MEDS ORDERED: VANCOMYCIN 750 MG in SOD CHLORIDE 0.9% 150 ML IVPB SCH (13:00)
[2017-04-05 14:00] VITALS: BP 128/82; RESP 20
--- NOTE | 2017-04-05 14:46 | CONS ---
Date/Time of Note Date/Time of Note DATE: 04/05/17 TIME: 14:38 Consultation Date/Type/Reason Admit Date/Time Apr 01, 2017 at 17:32 Initial Consult Date Subjective: 42 Y/O male with rt foot cellulitis and abscess. Sleepy. Denies fever. Denies pain. s/p DATE: 04/03/17 Incision and drainage right foot abscess with cellulitis. * NO fevers, WBC normalized today, BCx (-) * Wound Cx WOUND CULTURE Preliminary Organism 1 STAPHYLOCOCCUS AUREUS QUANTITY 2+ Organism 2 STAPHYLOCOCCUS SPECIES QUANTITY 1+ Organism 3 ALPHA HEMOLYTIC STREP SPP QUANTITY SCANT GROWTH . VIRIDANS GROUP GRAM STAIN Final POLYMORPH. LEUKOCYTE 1+ GRAM POS COCCI IN PAIRS 2+ EXAM: VS: 128/82 P:80 R:20 SO2: 99% T: 98.4 Labs: WBC-9.5 H&H: 10.7/32.1 BUN-13 Creat: 1.09 GEN: VSS, NAD HEENT: Unremarkable NECK: supple CVS: RRR, S1 and S2 CHEST: Equal chest rise bilaterally without dyspnea on observation ABD: Soft, NT, EXT: warm, DSG C/D/I SKIN: No rash, no diaphoresis ASSESSMENT: 42 yo M admit with: 1. Sepsis criteria on admission TMax 101.6, leukocytosis, tachycardia (HR 124) , lactic acidosis 2/2 #2 * BCx (-) preliminary 2. Right foot cellulitis -> w/ Right foot diabetic ulcer/great toe w/high ESR 105 * No MRI evidence of osteomyelitis. 4. History of type 2 diabetes.A1c = 10.6 - continue sliding scale insulin, and also 5. Diabetic peripheral neuropathy 6. Transient HTN readings in setting of acute sepsis 7. High cholesterol - f/u check lipid panel and consider 8. Tobaccoism INVASIVES: PIV ABX ALLERGY: NKDA CURRENT ABX: =>Clindamycin. Plan: Pt is stable. Continue with Clindamycin and D/C Vanco and Zosyn. Continue with PO Clinda. PO upon D/C when cleared by primary.. Wound care and pain management. Type of Consultation: ID Exam/Review of Systems Vital Signs Vitals Vital Signs Date Time Temp Pulse Resp B/P Pulse Ox O2 Delivery O2 Flow Rate FiO2 04/05/17 14:00 98.4 80 20 128/82 99 04/03/17 18:30 Room Air Intake and Output 04/04/17 04/04/17 04/05/17 15:00 23:00 07:00 Intake Total 350 ml 5340 ml 1350 ml Output Total 1550 ml Balance 350 ml 3790 ml 1350 ml Results Result Diagram: 04/05/17 0726 04/05/17 0726 Results 24 hrs Laboratory Tests Test 04/04/17 17:19 04/04/17 20:00 04/04/17 21:36 04/05/17 02:50 Bedside Glucose 173 184 217 Vancomycin Level Trough 21.8 *H Test 04/05/17 07:26 04/05/17 08:09 04/05/17 12:36 White Blood Count 9.5 Red Blood Count 3.49 L Hemoglobin 10.7 L Hematocrit 32.1 L Mean Corpuscular Volume 92.0 Mean Corpuscular Hemoglobin 30.7 Mean Corpuscular Hemoglobin Concent 33.3 Red Cell Distribution Width 11.8 Platelet Count 149 Mean Platelet Volume 10.8 H Neutrophils % 74.8 Lymphocytes % 11.6 L Monocytes % 8.6 Eosinophils % 4.0 Basophils % 0.3 Nucleated Red Blood Cells % 0.0 Neutrophils # 7.1 Lymphocytes # 1.1 Monocytes # 0.8 Eosinophils # 0.4 Basophils # 0.0 Nucleated Red Blood Cells # 0.0 Sodium Level 141 Potassium Level 3.7 Chloride Level 108 Carbon Dioxide Level 24 Anion Gap 13 Blood Urea Nitrogen 13 Creatinine 1.09 Glucose Level 186 Calcium Level 8.2 L Bedside Glucose 211 261 H Medications Medications Current Medications Ondansetron HCl (Zofran Inj) 4 mg Q6H PRN IV NAUSEA AND/OR VOMITING; Start 06/06 at 19:00 Acetaminophen (Tylenol Tab) 650 mg Q6H PRN PO PAIN LEVEL 1-3 OR FEVER Last administered on 04/03/17 20:08; Admin Dose 650 MG; Start 04/01/17 at 19:00 Acetaminophen/ Hydrocodone Bitart ([place] (5/325)) 1 tab Q6H PRN PO MODERATE PAIN LEVEL 4-6 Last administered on 04/05/17 06:09; Admin Dose 1 TAB; Start 04/01/17 at 19:00 Morphine Sulfate (morphine) 2 mg Q4H PRN IV SEVERE PAIN LEVEL 7-10 Last administered on 04/05/17 02:55; Admin Dose 2 MG; Start 04/01/17 at 19:00 Docusate Sodium (Colace) 100 mg Q12H PRN PO CONSTIPATION; Start 04/01/17 at 19 :00 Magnesium Hydroxide (Milk Of Mag) 30 ml DAILY PRN PO CONSTIPATION; Start 04/01 at 19:00 Sodium Biphosphate/ Sodium Phosphate (Fleet Enema) 133 ml DAILY PRN [place] CONSTIPATION; Start 04/01/17 at 19:00 Heparin Sodium (Porcine) (Heparin (5000 Units/0.5 ml)) 5,000 unit Q12 SC Last administered on 04/05/17 08:22; Admin Dose 5,000 UNIT; Start 04/01/17 at 21: 00 Lorazepam 0.5 mg 0.5 mg Q6H PRN IV ANXIETY; Start 04/01/17 at 19:00 Sodium Chloride (NS) 1,000 ml @ 100 mls/hr Q10H IV Last administered on 21:31; Admin Dose 100 MLS/HR; Start 04/01/17 at 18:59 Hydralazine HCl (Apresoline) 10 mg Q6H PRN IV ELEVATED BLOOD PRESSURE; Start 04/01/17 at 19:00 Clonidine (Catapres) 0.1 mg Q6H PRN PO ELEVATED BLOOD PRESSURE; Start at 19:00 Nitroglycerin (Nitroglycerin (Sl Tab) 0.4 Mg) 1 tab Q5M PRN SL ANGINA; Start 04/01/17 at 19:00 Diagnostic Test (Pha) (Accu-Chek) 1 ea 02 XX Last administered on 04/05/17 02 :45; Admin Dose 1 EA; Start 04/02/17 at 02:00 Miscellaneous Information 1 ea NOTE XX ; Start 04/01/17 at 19:30 Glucose (Glutose) 15 gm Q15M PRN PO DECREASED GLUCOSE; Start 04/01/17 at 19:30 Glucose (Glutose) 22.5 gm Q15M PRN PO DECREASED GLUCOSE; Start 04/01/17 at 19: 30 Dextrose (D50w Syringe) 25 ml Q15M PRN IV DECREASED GLUCOSE; Start 04/01/17 at 19:30 Dextrose (D50w Syringe) 50 ml Q15M PRN IV DECREASED GLUCOSE; Start 04/01/17 at 19:30 Glucagon (Glucagen) 1 mg Q15M PRN IM DECREASED GLUCOSE; Start 04/01/17 at 19: 30 Glucose (Glutose) 15 gm Q15M PRN BUCCAL DECREASED GLUCOSE; Start 04/01/17 at 19:30 Nicotine (Nicoderm 14 Mg/ 24hr) 1 patch DAILY TRANSDERM ; Start 04/01/17 at 19: 30 Insulin Glargine 28 unit 28 unit DAILY@08 SC Last administered on 04/05/17t 08 :22; Admin Dose 28 UNIT; Start 04/04/17 at 08:00 Clindamycin HCl/ Dextrose (Cleocin 600 Mg/ D5W (Pmx)) 50 ml @ 50 mls/hr Q8 IVPB ; Start 04/05/17 at 15:00 SARITA MAK Apr 05, 2017 14:46
[2017-04-05] MEDS: CLINDAMYCIN 600 MG/D5W (PMX) 50 ML IVPB SCH ×2 (17:52→21:57)
--- NOTE | 2017-04-05 18:04 | PN ---
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 Patient is to remain nonweightbearing on the right foot. Patient to have the following on a daily basis: Cleansed wound with sterile normal saline using a 20 cc syringe Apply Santyl ointment to the wound Wet-to-dry dressing Change daily Patient will require visiting nurse service for daily dressing changes as above. Patient will be followed while in-house. Patient will be discharged as per foot and ankle surgery once the visiting nurse services is arranged. Patient is to follow-up at the amputation prevention center once discharged. Subjective 24 Hr Interval Summary Postop day 2 status post right foot incision and drainage of abscess with cellulitis. Patient reports significant improvement and denies fever and chills. Patient reports he has not been walking on his right foot. Denies trauma to the right foot since his surgery. Constitutional: no complaints Pain Control: well controlled Exam/Review of Systems Vital Signs Vitals Vital Signs Date Time Temp Pulse Resp B/P Pulse Ox O2 Delivery O2 Flow Rate FiO2 04/05/17 14:00 98.4 80 20 128/82 99 04/03/17 18:30 Room Air Intake and Output 04/04/17 04/04/17 04/05/17 15:00 23:00 07:00 Intake Total 350 ml 5340 ml 1350 ml Output Total 1550 ml Balance 350 ml 3790 ml 1350 ml Exam Free Text/Dictation Postop exam: General appearance: Patient appears to be in no acute distress WB status: Has been nonweightbearing as directed on the right foot Bandages: Clean dry and intact removed for exam Surgical site: Improved significantly with decrease in erythema. The packing was removed and there is no pus and or bleeding noted Edema: Minimal Vasc Exam: Palpable pedal pulses on examination with normal capillary filling time and temperature gradient bilaterally Neuro Exam: Decreased protective sensation to sharp, dull, vibratory temperature stimuli Labs and imaging reviewed Results Result Diagram: 04/05/17 0726 04/05/17 0726 ALEXANDRA VASQUEZ DPM Apr 05, 2017 18:04
--- NOTE | 2017-04-05 18:43 | PN ---
Date/Time of Note Date/Time of Note DATE: 04/05/17 TIME: 18:40 Assessment/Plan VTE Prophylaxis VTE Prophylaxis Intervention: SCD's Lines/Catheters IV Catheter Type (from Nrs): Saline Lock Urinary Cath still in place: No Assessment/Plan Assessment/Plan 42 yo M with poorly controlled DM2 admitted for diabetic foot injection with abscess, sp I&D by podiatry. cultures reviewed-->all pathogens S to clinda. Imaging without OM convert abx to PO clinda CM cs for HH per podiatry rec cont insulin, DM adherence advised dc in AM once HH is set up Subjective 24 Hr Interval Summary Free Text/Dictation Pt feels ok. knows he needs to take better care of his DM Exam/Review of Systems Vital Signs Vitals Vital Signs Date Time Temp Pulse Resp B/P Pulse Ox O2 Delivery O2 Flow Rate FiO2 04/05/17 14:00 98.4 80 20 128/82 99 04/03/17 18:30 Room Air Intake and Output 04/04/17 04/04/17 04/05/17 15:00 23:00 07:00 Intake Total 350 ml 5340 ml 1350 ml Output Total 1550 ml Balance 350 ml 3790 ml 1350 ml Exam nad no mrg lungs clear abd soft R foot unwrapped, gauze adherent to wound at base of first toe on bottom of foot , mild erythema to forefoot over first/second toes proximal counterparts, no swelling Results Result Diagram: 04/05/1772504/05/17725 Results 24 hrs Laboratory Tests Test 04/04/17 20:00 04/04/17 21:36 04/05/17 02:50 04/05/17 07:26 Vancomycin Level Trough 21.8 *H Bedside Glucose 184 217 White Blood Count 9.5 Red Blood Count 3.49 L Hemoglobin 10.7 L Hematocrit 32.1 L Mean Corpuscular Volume 92.0 Mean Corpuscular Hemoglobin 30.7 Mean Corpuscular Hemoglobin Concent 33.3 Red Cell Distribution Width 11.8 Platelet Count 149 Mean Platelet Volume 10.8 H Neutrophils % 74.8 Lymphocytes % 11.6 L Monocytes % 8.6 Eosinophils % 4.0 Basophils % 0.3 Nucleated Red Blood Cells % 0.0 Neutrophils # 7.1 Lymphocytes # 1.1 Monocytes # 0.8 Eosinophils # 0.4 Basophils # 0.0 Nucleated Red Blood Cells # 0.0 Sodium Level 141 Potassium Level 3.7 Chloride Level 108 Carbon Dioxide Level 24 Anion Gap 13 Blood Urea Nitrogen 13 Creatinine 1.09 Glucose Level 186 Calcium Level 8.2 L Test 04/05/17 08:09 04/05/17 12:36 04/05/17 17:44 Bedside Glucose 211 261 H 126 Medications Medications Current Medications Ondansetron HCl (Zofran Inj) 4 mg Q6H PRN IV NAUSEA AND/OR VOMITING; Start 06/06 at 19:00 Acetaminophen (Tylenol Tab) 650 mg Q6H PRN PO PAIN LEVEL 1-3 OR FEVER Last administered on 04/03/17 20:08; Admin Dose 650 MG; Start 04/01/17 at 19:00 Acetaminophen/ Hydrocodone Bitart ([place] (5/325)) 1 tab Q6H PRN PO MODERATE PAIN LEVEL 4-6 Last administered on 04/05/17 06:09; Admin Dose 1 TAB; Start 04/01/17 at 19:00 Morphine Sulfate (morphine) 2 mg Q4H PRN IV SEVERE PAIN LEVEL 7-10 Last administered on 04/05/17 02:55; Admin Dose 2 MG; Start 04/01/17 at 19:00 Docusate Sodium (Colace) 100 mg Q12H PRN PO CONSTIPATION; Start 04/01/17 at 19 :00 Magnesium Hydroxide (Milk Of Mag) 30 ml DAILY PRN PO CONSTIPATION; Start 04/01 at 19:00 Sodium Biphosphate/ Sodium Phosphate (Fleet Enema) 133 ml DAILY PRN [place] CONSTIPATION; Start 04/01/17 at 19:00 Heparin Sodium (Porcine) (Heparin (5000 Units/0.5 ml)) 5,000 unit Q12 SC Last administered on 04/05/17 08:22; Admin Dose 5,000 UNIT; Start 04/01/17 at 21: 00 Lorazepam 0.5 mg 0.5 mg Q6H PRN IV ANXIETY; Start 04/01/17 at 19:00 Sodium Chloride (NS) 1,000 ml @ 100 mls/hr Q10H IV Last administered on 21:31; Admin Dose 100 MLS/HR; Start 04/01/17 at 18:59 Hydralazine HCl (Apresoline) 10 mg Q6H PRN IV ELEVATED BLOOD PRESSURE; Start 04/01/17 at 19:00 Clonidine (Catapres) 0.1 mg Q6H PRN PO ELEVATED BLOOD PRESSURE; Start at 19:00 Nitroglycerin (Nitroglycerin (Sl Tab) 0.4 Mg) 1 tab Q5M PRN SL ANGINA; Start 04/01/17 at 19:00 Diagnostic Test (Pha) (Accu-Chek) 1 ea 02 XX Last administered on 04/05/17 02 :45; Admin Dose 1 EA; Start 04/02/17 at 02:00 Miscellaneous Information 1 ea NOTE XX ; Start 04/01/17 at 19:30 Glucose (Glutose) 15 gm Q15M PRN PO DECREASED GLUCOSE; Start 04/01/17 at 19:30 Glucose (Glutose) 22.5 gm Q15M PRN PO DECREASED GLUCOSE; Start 04/01/17 at 19: 30 Dextrose (D50w Syringe) 25 ml Q15M PRN IV DECREASED GLUCOSE; Start 04/01/17 at 19:30 Dextrose (D50w Syringe) 50 ml Q15M PRN IV DECREASED GLUCOSE; Start 04/01/17 at 19:30 Glucagon (Glucagen) 1 mg Q15M PRN IM DECREASED GLUCOSE; Start 04/01/17 at 19: 30 Glucose (Glutose) 15 gm Q15M PRN BUCCAL DECREASED GLUCOSE; Start 04/01/17 at 19:30 Nicotine (Nicoderm 14 Mg/ 24hr) 1 patch DAILY TRANSDERM ; Start 04/01/17 at 19: 30 Insulin Glargine 28 unit 28 unit DAILY@08 SC Last administered on 04/05/17 08 :22; Admin Dose 28 UNIT; Start 04/04/17 at 08:00 Clindamycin HCl/ Dextrose (Cleocin 600 Mg/ D5W (Pmx)) 50 ml @ 50 mls/hr Q8 IVPB Last administered on 04/05/17 17:52; Admin Dose 50 MLS/HR; Start 04/05/17 at 15:00 IVELISSE SEARS MD Apr 05, 2017 18:43
[2017-04-05 19:53] VITALS: BP 121/76; RESP 18
[2017-04-06] MEDS: ACCU-CHEK XX SCH (02:00)
[2017-04-06 02:03] VITALS: BP 147/90; RESP 18
[2017-04-06] MEDS: CLINDAMYCIN 600 MG/D5W (PMX) 50 ML IVPB SCH ×3 (06:07→21:51)
[2017-04-06] MEDS: HYDROCODONE/APAP (5/325) TAB PO PRN ×3 (06:07→20:41)
[2017-04-06 07:50] VITALS: BP 125/68; RESP 20
[2017-04-06] MEDS: NICOTINE (14 MG/24 HR) PATCH TRANSDERM SCH (08:13)
[2017-04-06] MEDS: COLLAGENASE 30 GM TUBE TOP SCH (08:13)
[2017-04-06] MEDS: INSULIN ASPART [NOVOLOG] 3 ML PEN SC SCH ×7 (08:24→20:40)
[2017-04-06] MEDS: HEPARIN 5,000 UNIT/0.5 ML VIAL SC SCH ×2 (08:24→20:36)
[2017-04-06] MEDS: INSULIN GLARGINE [LANtus] 3 ML PEN SC SCH (08:25)
--- NOTE | 2017-04-06 09:23 | DS ---
Date/Time of Note Date/Time of Note DATE: 04/06/17 TIME: 09:21 Discharge Summary Admission/Discharge Info Admit Date/Time Apr 01, 2017 at 17:32 Discharge Date/Time Discharge Diagnosis sepsis from diabetic foot infection (cellulitis with abscess), poorly controlled diabetes Patient Condition: Stable Consults infectious disease, podiatry Procedures LABS a1c 10.6 Imagin.12 MRI R foot, negative for OM 10.14: Incision and drainage of right foot deep abscess with cellulitis 10.13 foot wound culture Microbiology GRAM STAIN Final EPITHELIAL CELLS 1+ GRAM POS COCCI IN PAIRS RARE GRAM POSITIVE RODS RARE WOUND CULTURE Preliminary Organism 1 STAPHYLOCOCCUS AUREUS QUANTITY 2+ Organism 2 COAGULASE NEGATIVE STAPH QUANTITY 1+ Organism 3 ALPHA HEMOLYTIC STREP SPP QUANTITY SCANT GROWTH . VIRIDANS GROUP Hx of Present Illness A 42-year-old male with past medical history of prior right big toe cellulitis and ulcer, type 2 diabetes, high cholesterol, and smoking history, who presents with right foot redness and pain. He says he has been treating an ulcer on the sole of his right foot near his 5th digit for the last 2 days with hydrogen peroxide and it has been having some mild drainage, but he also noticed redness occurring in his right foot for the last 24 hours. Denies any trauma to the area. No chest pain or shortness of breath, fevers or chills, nausea, vomiting, upper lower GI bleeding, diarrhea or constipation, headaches, dizziness, or loss of consciousness. When he came into the ER today, he had an elevated white blood cell count of almost 14,000 and his lactic acid was elevated as well at 2.5 and he was given antibiotics in the emergency room. He also had signs of elevated blood sugar of 509. Patient was last here at our hospital in Oct, 2015. At that time, he was treated for right big toe 1st digit cellulitis and ulcer, and had uncontrolled diabetes at that time. Hospital Course Pt admitted for sepsis in the setting of R foot wound with purulent drainage, pain and swelling. Pt seen by podiatry service which performed operative I&D of wound which evolved into abscess drainage. Culture results as above. ID assisted with antibiotic management and pt to be discharged on PO clinda. Given pt's poor DM control evidence by a1c >10, pt seen by adaptive physical educator. Pt reports non adherence to DM regimen at home. Patient started on basal/bolus insulin and advised to f/u with PCP within 7 days for further DM management and routine DM care. CM also set up home wound care for patient prior to discharge. Home Meds Active Scripts Clindamycin Hcl* (Cleocin*) 150 Mg Cap, 450 MG PO Q8 for 7 Days, #63 CAP Prov:IVELISSE SEARS MD 04/05/17 [Nicotine (14 Mg/24 Hr)] 1 PATCH PATCH No Conflict Check, 1 PATCH TRANSDERM DAILY for 30 Days, #30 PATCH Prov:IVELISSE SEARS MD 04/05/17 Insulin Glargine* (Lantus*) 100 Unit/Ml Soln, 28 UNIT SC DAILY@08 for 30 Days, # 1 VIAL Prov:IVELISSE SEARS MD 04/05/17 Insulin Aspart* (Novolog Insulin Pen*) 100 Unit/Ml Soln, 11 UNIT SC WITH MEALS for 30 Days, #1 VIAL Prov:IVELISSE SEARS MD 04/05/17 Reported Medications Sitagliptin* (Januvia*) 50 Mg Tablet, 50 MG PO BID, #30 TAB 10/29/15 Glipizide* (Glipizide*) 10 Mg Tablet, 10 MG PO BID, TAB 10/29/15 Discontinued Scripts Clindamycin Hcl* (Clindamycin Hcl*) 300 Mg Capsule, 300 MG PO Q6 for 10 Days, CAP Prov:LAURA NESBITT S. 10/31/15 Insulin Glargine* (Lantus*) 100 Unit/Ml Soln, 15 UNIT SC DAILY for 30 Days, 4 Refills Prov:LAURA NESBITT S. 10/31/15 Follow-up Plan PCP within 7 days for further DM management home health wound care podiatry clinic within 14 days Primary Care Provider Not On Staff Doctor Time spent on discharge: > 30 minutes Pending Labs Laboratory Tests Test 04/05/17 12:36 04/05/17 17:44 04/05/17 21:52 04/06/17 01:56 Bedside Glucose 261mg/dL (70-220) 126mg/dL (70-220) 232mg/dL (70-220) 198mg/dL (70-220) Test 04/06/17 08:12 Bedside Glucose 195mg/dL (70-220) Copies To: CC: ALEXANDRA VASQUEZ DPM, ELLEN MD Apr 06, 2017 09:23
--- NOTE | 2017-04-06 10:42 | PDOCDIS ---
Discharge Instructions DIAGNOSIS Discharge Diagnosis sepsis from diabetic foot infection (cellulitis with abscess), poorly controlled diabetes CONDITION Patient Condition: Stable HOME CARE INSTRUCTIONS: Special Diet: NPO FOLLOW UP/APPOINTMENTS Follow-up Plan PCP within 7 days for further DM management home health wound care podiatry clinic within 14 days -->Dr Sina Martinez Office Address [address] [address] Office IVELISSE SEARS MD Apr 06, 2017 10:42
[2017-04-06] MEDS ORDERED: AMOX500C2 PO (11:33)
[2017-04-06 14:00] VITALS: BP 111/73; RESP 20
[2017-04-06] MEDS: AMOXICILLIN 500 MG CAP PO SCH ×2 (14:36→21:51)
--- NOTE | 2017-04-06 14:54 | PN ---
DATE: 04/06/2017 INFECTIOUS DISEASE PROGRESS NOTE SUBJECTIVE: The patient is sleeping, looks comfortable, no fevers. No labs this morning. MICROBIOLOGY: Right foot wound culture grew Staphylococcus aureus, alpha hemolytic strep species an d gamma hemolytic strep species, enterococcus species and coagulase-negative staph species. ANTIMICROBIALS: The patient is on IV clindamycin. PHYSICAL EXAMINATION: GENERAL: Well-developed, middle-aged man in no distress. HEENT: Head atraumatic, normocephalic. Sclerae anicteric. Buccal mucosa pink. NECK: Supple. CHEST: Rise symmetrical. Breath sounds clear. HEART: S1, S2. ABDOMEN: Soft, bowel tones present. EXTREMITIES: With right foot dressing intact. ASSESSMENT: 1. Status post sepsis. 2. Right diabetic foot ulceration, status post incision and drainage, no evidence of osteomyelitis per magnetic resonance imaging. 3. Poorly controlled diabetes. 4. Diabetic neuropathy. 5. Hypertension. PLAN: The patient remains stable. Final cultures of the wound pending. We are going to add amoxic illin to cover enterococcus. Continue clindamycin. Follow podiatry recommendations. Dictated By: [facility] OPERATOR for DC DUONG MD NI/NTS Conf#: [id number] DID#: [id number]
[2017-04-06 19:34] VITALS: BP 147/95; RESP 20
[2017-04-06] MEDS: L ACIDOPHIL/B LACTIS/B LONGUM CAPSULE PO SCH (20:38)
--- NOTE | 2017-04-06 23:39 | PN ---
Date/Time of Note Date/Time of Note DATE: 04/06/17 TIME: 23:39 Assessment/Plan Lines/Catheters IV Catheter Type (from Nrs): Saline Lock Bess in Place (from Nrs): No Assessment/Plan Problems: (1) Diabetic foot ulcer Status: Acute (2) Diabetes mellitus Status: Acute Qualifiers: Diabetes mellitus type: type 2 Diabetes mellitus complication status: with hyperglycemia Diabetes mellitus terminal makeup operator insulin use: unspecified mcc insulin use status Qualified Code: E11.65 - Type 2 diabetes mellitus with hyperglycemia, unspecified mcc insulin use status (3) Lymphangitis Status: Acute (4) Sepsis Status: Acute Qualifiers: Sepsis type: sepsis due to unspecified organism Qualified Code: A41.9 - Sepsis, due to unspecified organism (5) Acute hyperglycemia Status: Acute (6) Foot pain Status: Resolved Assessment/Plan Patient may be discharged home as per foot and ankle surgery. Patient will require wound care with visiting nurse and follow-up at the amputation prevention center. Partial weightbearing allowed with postop shoe and crutches. Subjective 24 Hr Interval Summary Patient is status post incision and drainage of right foot abscess with cellulitis on April 03, 2017. Reports no adverse events overnight. Denies fever and chills reports significant improvement. Constitutional: no complaints Pain Control: well controlled Exam/Review of Systems Vital Signs Vitals Vital Signs Date Time Temp Pulse Resp B/P Pulse Ox O2 Delivery O2 Flow Rate FiO2 04/06/17 19:34 98.6 77 20 147/95 99 04/03/17 18:30 Room Air Intake and Output 04/05/17 04/05/17 04/06/17 15:00 23:00 07:00 Intake Total 100 ml 2600 ml 1450 ml Output Total 1400 ml 1100 ml Balance 100 ml 1200 ml 350 ml Exam Free Text/Dictation Right foot is status post incision and drainage. Erythema is reduced significantly. Edema is reduced. There is no tenderness and no malodor. No pus present. Labs reviewed. No other changes noted on examination today. Results Result Diagram: 04/05/17 0726 04/05/17 0726 ALEXANDRA VASQUEZ DPM Apr 06, 2017 23:39
[2017-04-07 01:56] VITALS: BP 144/91; RESP 20
[2017-04-07] MEDS: ACCU-CHEK XX SCH (02:00)
[2017-04-07] MEDS: AMOXICILLIN 500 MG CAP PO SCH ×2 (05:50→13:15)
[2017-04-07] MEDS: ACETAMINOPHEN 325 MG TAB PO PRN (05:50)
[2017-04-07] MEDS: CLINDAMYCIN 600 MG/D5W (PMX) 50 ML IVPB SCH ×2 (05:51→13:15)
[2017-04-07 07:29] VITALS: BP 119/68; RESP 18
[2017-04-07] MEDS: INSULIN GLARGINE [LANtus] 3 ML PEN SC SCH (08:10)
[2017-04-07] MEDS: INSULIN ASPART [NOVOLOG] 3 ML PEN SC SCH ×4 (08:11→12:14)
[2017-04-07] MEDS: L ACIDOPHIL/B LACTIS/B LONGUM CAPSULE PO SCH (08:13)
[2017-04-07] MEDS: COLLAGENASE 30 GM TUBE TOP SCH (08:13)
[2017-04-07] MEDS: NICOTINE (14 MG/24 HR) PATCH TRANSDERM SCH (08:13)
[2017-04-07] MEDS: HEPARIN 5,000 UNIT/0.5 ML VIAL SC SCH (08:13)
[2017-04-07] MEDS: HYDROCODONE/APAP (5/325) TAB PO PRN (12:08)
--- NOTE | 2017-04-07 13:14 | CONS ---
Date/Time of Note Date/Time of Note DATE: 04/07/17 TIME: 13:12 Consult Date/Type/Reason Admit Date/Time Apr 01, 2017 at 17:32 Initial Consult Date 04/02/17 Type of Consultation: ID Objective Vital Signs Date Time Temp Pulse Resp B/P Pulse Ox O2 Delivery O2 Flow Rate FiO2 04/07/17 07:29 98.4 74 18 119/68 98 04/03/17 18:30 Room Air Intake and Output 04/06/17 04/06/17 04/07/17 15:00 23:00 07:00 Intake Total 2100 ml 570 ml Output Total 1600 ml 1300 ml Balance 500 ml -730 ml Results/Medications Result Diagram: 04/05/1772504/05/17725 Results 24 hrs Laboratory Tests Test 04/06/17 17:29 04/06/17 20:37 04/07/17 02:14 04/07/17 07:54 Bedside Glucose 155 188 230 H 197 Test 04/07/17 11:59 Bedside Glucose 227 H Medications Current Medications Ondansetron HCl (Zofran Inj) 4 mg Q6H PRN IV NAUSEA AND/OR VOMITING; Start 06/06 at 19:00 Acetaminophen (Tylenol Tab) 650 mg Q6H PRN PO PAIN LEVEL 1-3 OR FEVER Last administered on 04/07/17 05:50; Admin Dose 650 MG; Start 04/01/17 at 19:00 Acetaminophen/ Hydrocodone Bitart ([place] (5/325)) 1 tab Q6H PRN PO MODERATE PAIN LEVEL 4-6 Last administered on 04/07/17 12:08; Admin Dose 1 TAB; Start 04/01/17 at 19:00 Morphine Sulfate (morphine) 2 mg Q4H PRN IV SEVERE PAIN LEVEL 7-10 Last administered on 04/05/17 02:55; Admin Dose 2 MG; Start 04/01/17 at 19:00 Docusate Sodium (Colace) 100 mg Q12H PRN PO CONSTIPATION; Start 04/01/17 at 19 :00 Magnesium Hydroxide (Milk Of Mag) 30 ml DAILY PRN PO CONSTIPATION; Start 04/01 at 19:00 Sodium Biphosphate/ Sodium Phosphate (Fleet Enema) 133 ml DAILY PRN AL CONSTIPATION; Start 04/01/17 at 19:00 Heparin Sodium (Porcine) (Heparin (5000 Units/0.5 ml)) 5,000 unit Q12 SC Last administered on 04/07/17 08:13; Admin Dose 5,000 UNIT; Start 04/01/17 at 21: 00 Clonidine (Catapres) 0.1 mg Q6H PRN PO ELEVATED BLOOD PRESSURE; Start at 19:00 Nitroglycerin (Nitroglycerin (Sl Tab) 0.4 Mg) 1 tab Q5M PRN SL ANGINA; Start 04/01/17 at 19:00 Diagnostic Test (Pha) (Accu-Chek) 1 ea 02 XX Last administered on 04/05/17 02 :45; Admin Dose 1 EA; Start 04/02/17 at 02:00 Miscellaneous Information 1 ea NOTE XX ; Start 04/01/17 at 19:30 Glucose (Glutose) 15 gm Q15M PRN PO DECREASED GLUCOSE; Start 04/01/17 at 19:30 Glucose (Glutose) 22.5 gm Q15M PRN PO DECREASED GLUCOSE; Start 04/01/17 at 19: 30 Dextrose (D50w Syringe) 25 ml Q15M PRN IV DECREASED GLUCOSE; Start 04/01/17 at 19:30 Dextrose (D50w Syringe) 50 ml Q15M PRN IV DECREASED GLUCOSE; Start 04/01/17 at 19:30 Glucagon (Glucagen) 1 mg Q15M PRN IM DECREASED GLUCOSE; Start 04/01/17 at 19: 30 Glucose (Glutose) 15 gm Q15M PRN BUCCAL DECREASED GLUCOSE; Start 04/01/17 at 19:30 Nicotine (Nicoderm 14 Mg/ 24hr) 1 patch DAILY TRANSDERM ; Start 04/01/17 at 19: 30 Insulin Glargine 28 unit 28 unit DAILY@08 SC Last administered on 04/07/17 08 :10; Admin Dose 28 UNIT; Start 04/04/17 at 08:00 Clindamycin HCl/ Dextrose (Cleocin 600 Mg/ D5W (Pmx)) 50 ml @ 50 mls/hr Q8 IVPB Last administered on 04/07/17 05:51; Admin Dose 50 MLS/HR; Start 04/05/17 at 15:00 Collagenase (Santyl) 1 applic DAILY TOP Last administered on 04/07/17 08:13; Admin Dose 1 APPLIC; Start 04/06/17 at 09:00 Amoxicillin (Amoxicillin) 500 mg Q8 PO Last administered on 04/07/17t 05:50; Admin Dose 500 MG; Start 04/06/17 at 15:00 Lactobacillus Acidophilus (Florajen3 Capsule) 1 each BID PO Last administered on 04/07/17 08:13; Admin Dose 1 EACH; Start 04/06/17 at 21:00 Assessment/Plan Chief Complaint/Hosp Course SUBJECTIVE: No acute changes, awake, looks comfortable, no fevers MICROBIOLOGY: Right foot wound culture grew Staphylococcus aureus, alpha hemolytic strep species and gamma hemolytic strep species, enterococcus species and coagulase-negative staph species. ANTIMICROBIALS: The patient is on IV clindamycin and Amoxicillin. PHYSICAL EXAMINATION: GENERAL: Well-developed, middle-aged man in no distress. HEENT: Head atraumatic, normocephalic. Sclerae anicteric. Buccal mucosa pink. NECK: Supple. CHEST: Rise symmetrical. Breath sounds clear. HEART: S1, S2. ABDOMEN: Soft, bowel tones present. EXTREMITIES: With right foot dressing intact. ASSESSMENT: 1. Status post sepsis. 2. Right diabetic foot ulceration, status post incision and drainage, no evidence of osteomyelitis per magnetic resonance imaging. 3. Poorly controlled diabetes. 4. Diabetic neuropathy. 5. Hypertension. PLAN: The patient remains stable. Continue present care, anticipate dc on oral Clindamycin, Amoxicillin and probiotics when cleared by podiatry, f/u at [facility] for wound management Problems: MORE MCLEAN NP Apr 07, 2017 13:14
[2017-04-07 13:51] VITALS: BP 113/71; RESP 18
== END 2017-04-07 16:25 | disposition home health service (06) | DRG 872 ==
LOC: E/R 14:17 → MS3 17:32 → MS2 04-02 22:49
PROVIDERS: ADMIT Hospitalist; ATTEND Hospitalist
PROC: 0H9MXZX Drainage of Right Foot Skin, External Approach, Diagnostic (ICD-10-PCS; principal; 2017-04-03 15:30)
DX: A41.9 Sepsis, unspecified organism (principal); E87.2 Acidosis; E11.621 Type 2 diabetes mellitus with foot ulcer; E11.42 Type 2 diabetes mellitus with diabetic polyneuropathy; L03.115 Cellulitis of right lower limb; L02.611 Cutaneous abscess of right foot; L03.125 Acute lymphangitis of right lower limb; E11.65 Type 2 diabetes mellitus with hyperglycemia; E78.00 Pure hypercholesterolemia, unspecified; F17.210 Nicotine dependence, cigarettes, uncomplicated; I10 Essential (primary) hypertension; B95.61 Methicillin susceptible Staphylococcus aureus infection as the cause of diseases classified elsewhere; B95.2 Enterococcus as the cause of diseases classified elsewhere; Z79.84 Long term (current) use of oral hypoglycemic drugs
CPT/HCPCS: 36415; 71010; 73630; 73718; 80048; 80053; 80061; 80202; 82962; 83036; 83605; 83690; 83735; 84100; 84439; 84443; 84484; 85025; 85610; 85651; 85730; 86140; 87040; 87070; 93005; 96372; 96374; 96375; 97162; J1644; J1815; J2250; J2270; J2543; J2765; J3010; J3370; J3475; J7030; J7050

== ENCOUNTER 2017-05-25 16:21 | Emergency (ER) | payer SELFPAY ==
[~2017-05-25] VITALS: Wt 84.9 kg
[~2017-05-25 16:21] MED LIST changes: +AMOX500C2 PO; +CLIN-72 PO; -CLIN-73 PO; -GLIP-95 PO; +NOVO3I SC; +Nicotine (14 Mg/24 Hr) TRANSDERM; -SITA50TA2 PO
--- NOTE | 2017-05-25 19:29 | ERD ---
ER Documentation Chief Complaint Chief Complaint WOUND RECHECK ON RIGHT FOOT S/P PROCEDURE HPI 42 yo diabetic male patient, s/p surgical debarment of DM foot ulcer . pt presents with cracked fissured right sole of foot between 5th and 4th metatarsal, pt states that he goes to foot clinic ever 30 days , states that wound is worsent, last visit 2 weeks ago stated fine . pt reports drainage and odor m BS controlled Chart review Right foot cellulitis -still prominent, slowly improving. Patient had IND procedure performed of plantar ulcer near fifth digit yesterday POD # 1 - f/u podiatry and infectious disease consult rec's, - continue broad-spectrum antibiotics, IV fluids as well. - f wound culture results final Right foot diabetic ulcer. Again, see number 1. -Status post I&D, continue broad-spectrum antibiotics -Follow-up podiatry and infectious disease ROS All systems reviewed and are negative except as per history of present illness. Medications Home Meds Active Scripts Amoxicillin* (Amoxicillin*) 500 Mg Cap, 500 MG PO Q8 for 7 Days, #21 CAP Prov:IVELISSE SEARS MD 04/06/17 Clindamycin Hcl* (Cleocin*) 150 Mg Cap, 450 MG PO Q8 for 7 Days, #63 CAP Prov:IVELISSE SEARS MD 04/05/17 [Nicotine (14 Mg/24 Hr)] 1 PATCH PATCH No Conflict Check, 1 PATCH TRANSDERM DAILY for 30 Days, #30 PATCH Prov:IVELISSE SEARS MD 04/05/17 Insulin Glargine* (Lantus*) 100 Unit/Ml Soln, 28 UNIT SC DAILY@08 for 30 Days, # 1 VIAL Prov:IVELISSE SEARS MD 04/05/17 Insulin Aspart* (Novolog Insulin Pen*) 100 Unit/Ml Soln, 11 UNIT SC WITH MEALS for 30 Days, #1 VIAL Prov:IVELISSE SEARS MD 04/05/17 Allergies Allergies: Coded Allergies: No Known Allergy (Verified , 04/01/17) PMhx/Soc History of Surgery: No Anesthesia Reaction: No Hx Neurological Disorder: No Hx Respiratory Disorders: No Hx Cardiac Disorders: Yes (HLD) Hx Psychiatric Problems: No Hx Miscellaneous Medical Probl: Yes (DM2, HIGH CHOLSETEROL) Hx Alcohol Use: No Hx Substance Use: No Hx Tobacco Use: Yes Physical Exam Vitals Vitals stable, triage notes reviewed Physical Exam Const: Well-nourished, well-hydrated, well-appearing 42-year-old male patient no acute distress ENT: Normal External Ears, Nose and Mouth. Resp: Clear to auscultation bilaterally No respiratory distress Cardio: Regular rate and rhythm, no murmurs Skin: Right foot sole side between fourth and fifth metatarsal presents with healing surgical incision, soft, non-erythematous, nontender to palpation, no discharge expressed with manual compression. Ext: No cyanosis, or edema Neur: Awake and alert Psych: Normal Mood and Affect Results 24 hrs Laboratory Tests Test 05/25/17 19:55 White Blood Count 8.310^3/ul Red Blood Count 4.2910^6/ul Hemoglobin 13.1g/dl Hematocrit 37.8% Mean Corpuscular Volume 88.1fl Mean Corpuscular Hemoglobin 30.5pg Mean Corpuscular Hemoglobin Concent 34.7g/dl Red Cell Distribution Width 12.6% Platelet Count 89069^3/UL Mean Platelet Volume 11.1fl Neutrophils % 61.1% Lymphocytes % 28.8% Monocytes % 6.4% Eosinophils % 2.8% Basophils % 0.5% Nucleated Red Blood Cells % 0.0/100WBC Neutrophils # 5.010^3/ul Lymphocytes # 2.410^3/ul Monocytes # 0.510^3/ul Eosinophils # 0.210^3/ul Basophils # 0.010^3/ul Nucleated Red Blood Cells # 0.010^3/ul Sodium Level 141mmol/L Potassium Level 4.2mmol/L Chloride Level 101mmol/L Carbon Dioxide Level 30mmol/L Anion Gap 14 Blood Urea Nitrogen 15mg/dl Creatinine 0.97mg/dl Glucose Level 190mg/dl Calcium Level 10.0mg/dl Total Bilirubin 0.2mg/dl Direct Bilirubin 0.00mg/dl Indirect Bilirubin 0.2mg/dl Aspartate Amino Transf (AST/SGOT) 16IU/L Alanine Aminotransferase (ALT/SGPT) 39IU/L Alkaline Phosphatase 87IU/L Total Protein 7.4g/dl Albumin 4.1g/dl Globulin 3.30g/dl Albumin/Globulin Ratio 1.24 Interpretation text CBC shows no evidence of hemorrhage or infection Chemistry shows no evidence of significant electrolyte abnormalities or renal insufficiency Liver function tests shows no evidence of acute biliary or hepatic Procedures/MDM PROCEDURE: XR Foot. CLINICAL INDICATION: Foot wound, diabetes mellitus, osteomyelitis. TECHNIQUE: Three views of the right foot. COMPARISON: None available. FINDINGS: No fracture or dislocation is identified.No cortical lucency or periosteal reaction is identified to suggest osteomyelitis. The joint spaces are preserved. There is no significant soft tissue swelling. IMPRESSION: 1. No radiographic evidence of osteomyelitis. .Israel Noel MD, MD Date Time This 42-year-old male patient presents to emergency department for wound recheck , patient reports that he has had a foul-smelling drainage coming from his right foot. Patient reports he has a wound nurse that comes to his home, does not feel it was assessed correctly is here for recheck, emergency room course includes history and physical exam, laboratory testing and radiographic imaging to rule out any infection/osteomyelitis, serology shows no Evidence of acute infection, or blood loss, radiographic imaging shows no evidence of osteomyelitis, patient was discharged home without additional treatment instructed to follow-up with wound clinic, demographics provided. Return to emergency department for fever, chills, difficulty ambulating, any emergent symptoms worse than what they are now. Patient is stable with no new complaints during ER course, clinically there is no current evidence to suggest DKA, osteomyelitis, Garcia-Edilberto syndrome, necrotizing fasciitis, cellulitis or any other emergent condition appearing to require further evaluation or hospitalization. I feel the patient is stable for discharge at this time. I have discussed results, examination findings, the treatment plan with the patient and family present prior to discharge. Indications for emergent reevaluation, side effects of medication were also discussed. All questions were answered. Patient verbalizes understanding and agrees with plan of care. Departure Diagnosis: Primary Impression: Encounter for wound re-check Condition: Good Patient Instructions: Wound Care Additional Instructions: Thank you for for coming to [facility] for your care today. Please ask your nurse or provider if you have questions about your care today and do not leave until all your questions have been answered. Please use any medications given as directed and follow-up with your doctor (or the doctor you were referred to) in the next 2-3 days. If you do not have a primary care doctor you may follow up at the [facility] [place] (listed below). You may also use motrin and tylenol as needed for fever and/or pain unless instructed otherwise by your provider or nurse. Indications for more urgent follow-up have been discussed, but you may return to the Emergency Department at ANY time for any worrisome or worsening symptoms. If you have abdominal pain, please know that no test or exam you received is perfect and you should follow up within 8 hours for continued pain. If you had any imaging studies today, such as an X-Ray or CT Scan, these studies will be reviewed later by a radiologist. You will be called if there are important findings that were not identified today, so make sure the contact information you provided at registration is correct. If you received any narcotic pain control medicine today, such as Vicodin, Morphine or Dilaudid, your coordination and judgment may be affected for a number of hours. Please do not drive or operate heavy machinery, and you may want someone to assist you at home. If you were given a prescription for narcotic medication, be aware that it is very addictive- use sparingly and only if necessary. ZENAIDA SPARROW May 25, 2017 19:29
[2017-05-25 20:16] LABS: BASOPHILS % 0.5 % (0.0-2.0); EOSINOPHILS # 0.2 10^3/ul (0.0-0.5); EOSINOPHILS % 2.8 % (0.0-7.0); HEMATOCRIT 37.8 % (42.0-52.0); HEMOGLOBIN 13.1 g/dl (14.0-18.0); LYMPHOCYTES # 2.4 10^3/ul (0.8-2.9); LYMPHOCYTES % 28.8 % (15.0-51.0); MEAN CORPUSCULAR HEMOGLOBIN 30.5 pg (29.0-33.0); MEAN CORPUSCULAR HGB CONC 34.7 g/dl (32.0-37.0); MEAN CORPUSCULAR VOLUME 88.1 fl (82.0-101.0); MEAN PLATELET VOLUME 11.1 fl (7.4-10.4); MONOCYTE # 0.5 10^3/ul (0.3-0.9); MONOCYTES % 6.4 % (0.0-11.0); NEUTROPHILS % 61.1 % (39.0-77.0); PLATELET COUNT 153 10^3/UL (140-415); RED BLOOD COUNT 4.29 10^6/ul (4.70-6.10); RED CELL DISTRIBUTION WIDTH 12.6 % (11.5-14.5); WHITE BLOOD COUNT 8.3 10^3/ul (4.8-10.8)
[2017-05-25 20:27] LABS: ALBUMIN 4.1 g/dl (3.3-4.9); ALBUMIN/GLOBULIN RATIO 1.24; BILIRUBIN,INDIRECT 0.2 mg/dl (0-1.1); BILIRUBIN,TOTAL 0.2 mg/dl (0.2-1.3); CREATININE 0.97 mg/dl (0.61-1.24); POTASSIUM 4.2 mmol/L (3.5-5.1); TOTAL PROTEIN 7.4 g/dl (6.1-8.1)
--- NOTE | 2017-05-25 22:20 | RADRPT ---
PROCEDURE: XR Foot. CLINICAL INDICATION: Foot wound, diabetes mellitus, osteomyelitis. TECHNIQUE: Three views of the right foot. COMPARISON: None available. FINDINGS: No fracture or dislocation is identified.No cortical lucency or periosteal reaction is identified to suggest osteomyelitis. The joint spaces are preserved. There is no significant soft tissue swell ing. IMPRESSION: 1. No radiographic evidence of osteomyelitis. RPTAT: HTAR .Israel Noel MD, MD Date Time Electronically viewed and signed by .Israel Noel MD, on 05/25/2017 22:20 .R/
[2017-05-25 23:14] VITALS: BP 153/96; PULSE 98; RESP 18; TEMP 98.4
== END 2017-05-25 23:17 | disposition home or self-care (01) ==
LOC: FTE 16:21
DX: T81.89XA Other complications of procedures, not elsewhere classified, initial encounter (principal); E11.9 Type 2 diabetes mellitus without complications; Y82.8 Other medical devices associated with adverse incidents; Z79.4 Long term (current) use of insulin; Z87.891 Personal history of nicotine dependence
CPT/HCPCS: 36415; 73620; 80053; 85025

== ENCOUNTER 2017-06-05 08:57 | Emergency (ER) | payer SELFPAY ==
[~2017-06-05] VITALS: Ht 180.3 cm; Wt 84.0 kg
[2017-06-05 09:05] VITALS: Ht 180.3 cm; Wt 84.0 kg
[2017-06-05] MEDS ORDERED: IBUPROFEN 600 MG TAB PO ONE (11:00)
[2017-06-05] MEDS ORDERED: IBUP-1542 PO (11:15)
[2017-06-05] MEDS ORDERED: ACET1TAB40 PO (11:15)
[2017-06-05] MEDS ORDERED: AZIT250T94 PO (11:15)
--- NOTE | 2017-06-05 11:18 | ERD ---
ER Documentation Chief Complaint Chief Complaint LT EAR PAIN SINCE LAST NIGHT HPI This 42-year-old male resents with left ear pain for 1 day. May have had a small amount of discharge. Denies any significant cough congestion. ROS All systems reviewed and are negative except as per history of present illness. Medications Home Meds Active Scripts Acetaminophen with Codeine (Acetaminophen-Cod #3 Tablet) 1 Each Tablet, 1 TAB PO Q6H Y for PAIN, #7 TAB Prov:ANDRE SUE MD 06/05/17 Ibuprofen* (Motrin*) 600 Mg Tab, 600 MG PO Q6, #15 TAB Prov:ANDRE SUE MD 06/05/17 Azithromycin* (Zithromax*) 250 Mg Tablet, 250 MG PO .ZPACK DIRECTED, #6 TAB TAKE 500 MG (2 TABS) THE FIRST DAY THEN 250 MG (1 TAB) DAYS 2-5 Prov:ANDRE SUE MD 06/05/17 Amoxicillin* (Amoxicillin*) 500 Mg Cap, 500 MG PO Q8 for 7 Days, #21 CAP Prov:IVELISSE SEARS MD 04/06/17 Clindamycin Hcl* (Cleocin*) 150 Mg Cap, 450 MG PO Q8 for 7 Days, #63 CAP Prov:IVELISSE SEARS MD 04/05/17 [Nicotine (14 Mg/24 Hr)] 1 PATCH PATCH No Conflict Check, 1 PATCH TRANSDERM DAILY for 30 Days, #30 PATCH Prov:IVELISSE SEARS MD 04/05/17 Insulin Glargine* (Lantus*) 100 Unit/Ml Soln, 28 UNIT SC DAILY@08 for 30 Days, # 1 VIAL Prov:IVELISSE SEARS MD 04/05/17 Insulin Aspart* (Novolog Insulin Pen*) 100 Unit/Ml Soln, 11 UNIT SC WITH MEALS for 30 Days, #1 VIAL Prov:IVELISSE SEARS MD 04/05/17 Allergies Allergies: Coded Allergies: No Known Allergy (Verified , 06/05/17) PMhx/Soc History of Surgery: Yes (R foot) Anesthesia Reaction: No Hx Neurological Disorder: No Hx Respiratory Disorders: No Hx Cardiac Disorders: Yes (HLD) Hx Psychiatric Problems: No Hx Miscellaneous Medical Probl: Yes (DM2, HIGH CHOLSETEROL) Hx Alcohol Use: No Hx Substance Use: No Hx Tobacco Use: Yes Smoking Status: Current every day smoker Physical Exam Vitals Vital Signs Date Time Temp Pulse Resp B/P Pulse Ox O2 Delivery O2 Flow Rate FiO2 06/05/17 09:05 98.6 99 18 176/98 99 Physical Exam Const: [] Alert, [id number]. Head: Atraumatic Eyes: Normal Conjunctiva ENT: Normal External Ears, Nose and Mouth. Her TM is with decreased light reflex. Left TM shows bulging with clear yellow fluid with redness. Neck: Full range of motion..~ No meningismus. Resp: Clear to auscultation bilaterally Cardio: Regular rate and rhythm, no murmurs Abd: Soft, non tender, non distended. Normal bowel sounds Skin: No petechiae or rashes Back: No midline or flank tenderness Ext: No cyanosis, or edema Neur: Awake and alert Psych: Normal Mood and Affect Results 24 hrs Current Medications Medications (Trade) Dose Ordered Sig/Antoni Route PRN Reason Start Time Stop Time Status Last Admin Dose Admin Ibuprofen (Motrin) 600 mg ONCE ONCE PO 06/05/17 11:00 06/05/17 11:01 DC Procedures/MDM Patient presents with signs of bullous myringitis for the last day. Patient was advised on possible spontaneous rupture. We treated with ibuprofen and Zithromax, return precautions primary care follow-up. There is no evidence of mastoiditis, abscess, cellulitis, airway obstruction. The patient was stable with no new complaints during the ER course. Clinically, there is no current evidence to suggest meningitis, sepsis, acute abdomen, pneumonia, acute coronary syndrome, pulmonary embolism, or any other emergent condition appearing to require further evaluation or hospitalization. The patient should certainly return for any new or worsening symptoms per the aftercare instructions. They should otherwise follow-up with her primary care doctor for reevaluation this week. Departure Diagnosis: Primary Impression: Bullous myringitis of left ear Additional Impression: Left ear pain Condition: Stable Patient Instructions: Otitis Media, Abx Tx (Adult) Additional Instructions: Recheck for new or worsening symptoms or primary care doctor. ANDRE SUE MD Jun 05, 2017 11:18
== END 2017-06-05 11:43 | disposition home or self-care (01) ==
LOC: FTE 08:57
DX: H73.012 Bullous myringitis, left ear (principal); E11.9 Type 2 diabetes mellitus without complications; F17.210 Nicotine dependence, cigarettes, uncomplicated; Z79.4 Long term (current) use of insulin
CPT/HCPCS: 99284